=== PATIENT | female | born 1975 | race Caucasian/White ===

== ENCOUNTER 2019-02-23 06:37 | Day surgery (SDC) | payer OTHER, MEDICAID, SELFPAY ==
[2019-02-21 12:32] VITALS: BMI 28.9
[2019-02-23] VITALS (8 sets, daily range): BP systolic 95–109; BP diastolic 37–73; PULSE 52–74; RESP 14–100; TEMP 36.2–36.6; O2SAT 14–100; BMI 27.6
--- NOTE | 2019-02-23 | PATH_ITS ---
[facility] Accession Number: [id number] . 01 Material submitted: . uterus - UTERUS AND BILATERAL FALLOPIAN TUBES . 02 Diagnosis: Uterus and Bilateral Fallopian Tubes, Supracervical Hysterectomy and Bilateral Salpingectomy (Weight 84 grams): Portions of weakly proliferative and disordered proliferative endometrium; negative for glandular hyperplasia, cytologic atypia, and malignancy. Myometrium with multiple intramural leiomyomas (0.1-1.2 cm in greatest dimension). Myometrium with focal involvement by adenomyosis/adenomyoma. Please see comment. Fallopian tubes #1 and #2 with benign paratubal cysts (0.1-0.7 cm in greatest dimension) and no significant histomorphologic abnormality. . MRV 02/27/2019 1401 Local . 02 Comment: Histologic sections of myometrium demonstrate a region of benign glandular elements and associated benign stroma; this is favored to be adenomyosis, although an adenomyoma cannot be completely excluded. . . . . . 02 Electronically signed: . Michelle Myers MD, Pathologist NPI- [id number] . 01 Gross description: . Received in formalin, labeled uterus plus bilateral fallopian tubes, is a morcellated uterus (84 grams, 11.5 x 9.3 x 4.8 cm in aggregate) and two detached fimbriated fallopian tubes (tube #1: length-5.5 cm, diameter-0.5 cm; tube #2: length-5.1 cm, diameter-0.6 cm). The ovaries and cervix are absent. The specimen cannot be oriented and the endometrium and myometrium cannot be grossly measured. The parenchyma is best-white and contains multiple solid firm white whorled, well-circumscribed homogeneous nodules (0.1 x 0.1 by less than 0.1 cm-1.2 x 0.6 x 0.5 cm). The serosa is best smooth and shiny. The fallopian tubes have clark-pink smooth shiny serosa with multiple paratubal cysts (0.1 cm-0.7 cm) containing clear colorless fluid. The lumens are best and focally dilated and otherwise unremarkable. 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 ([id number]) /MRV 02/24/2019 [facility] Local . 02 Pathologist provided ICD-10: N92.0, N94.6 . 02 CPT . [id number] Performed at: 01 [facility] [address] [id number] MD Rommel Ackerman MD Phone: [phone] Performed at: 02 [facility] [place] [address] [place], [place] [id number] MD Kellie Carreon MD Phone: [phone]
--- NOTE | 2019-02-23 07:26 | PM.PREOP ---
Pre-operative Note Interval Note History & Physical reviewed/Exam performed by Physician: Yes Changes to H&P: No
[2019-02-23] MEDS: LACTATED RINGERS 1,000 ML 100 ML IV ×2 (07:32→08:58)
[2019-02-23] MEDS: CEFAZOLIN 2 GM/100 ML FROZ.PIGGY IV (07:55)
--- NOTE | 2019-02-23 08:39 | SUR.OPER ---
Lithotomy on padded OR bed. [place] Pad Positioner under torso. Head on pillow, arms padded and tucked at sides. Legs secured in padded yellow fins stirrups.
[2019-02-23] MEDS: BUPIVACAINE 0.5% W/ EPI (PF) VIAL 30 ML INJ (08:46)
[2019-02-23] MEDS: ROPIVACAINE 0.2% PF 2 MG/ML 10ML AMP 20 ML INJ (08:46)
[2019-02-23] MEDS: OXYCODONE/ACETAMINOPHEN 5/325 TABLET 1 TAB PO (10:04)
--- NOTE | 2019-02-23 11:06 | SUR.PHASEII ---
Assumed care from Janes, assisted pt to BR, steady when up. Voided in BR 30 mls, 42 PVR, thses results left with Dr. Gibson's nurse pema. Pema reported to Dr. Gibson and Yuly called back and stated pt was indeed allowed to go home. [facility] d/c instructions discussed, all voiced an understanding.
--- NOTE | 2019-02-23 12:54 | SUR.PHASEII ---
Late entry: Pt dressed when ready and left when ready and in stable condition.
--- NOTE | 2019-02-24 09:39 | PM.GYNOP.1 ---
Operative Date/Time/Diagnoses Date of procedure: 02/23/19 Time of procedure: 09:45 Pre-op diagnosis: menorrrhagia dysmenorrhea pelvic pain Post-op diagnosis: same Procedure & Clinicians Procedure: Procedures Operation Date: 02/23/19 07:45 Actual Procedures Side Surgeon p Laparoscopic Supracervical Hysterectomy w/ bilateral salpingectomy Not Applicable Hortencia Gibson MD Indications: Menorrhagia Dysmenorrhea Surgeon: Hortencia Gibson Directory Operator: Ramon Alarcon Anesthesia Type: General Operative Notes Findings: 10 week size anteverted uterus Adhesions between the bowel and left adnexa Normal liver, and ovaries Appendix not visualized Gallbladder not visualized Tubes status post ligation bilaterally Closure Type: primary Specimen(s): left tube, right tube and uterus Applied: catheter (Removed at the end of the case) Estimated blood loss (mL): 75 Blood products transfused: none Procedure in detail: The patient was taken to the operating room where she was placed in the dorsal supine position. After adequate general endotracheal anesthesia was achieved, she was placed in the dorsal lithotomy position, and prepped and draped in the usual sterile fashion. A timeout was performed. A bivalve speculum was placed into the vagina and the anterior lip of the cervix grasped with a single-tooth tenaculum. The cervical os was sequentially dilated until the ZUMI uterine manipulator could pass easily into the endometrial cavity. The single-tooth tenaculum was removed from the anterior lip of the cervix, and the bivalve speculum was removed from the vagina. Attention was then turned to the abdomen where 6 mL of half percent Marcaine with epinephrine were injected in the umbilical fold. A 5 mm incision was made. The Verhees needle was placed into the peritoneal cavity, and its placement confirmed by aspiration and drop test. The Verhees needle was removed. A 5 mm trocar was placed without difficulty. 2 other incisions were made midway between the pubic symphysis and umbilicus after 5 mL of half percent Marcaine with epinephrine were injected. These were 5 mm incisions. Two 5 mm trochars were placed under direct visualization. The right tube was grasped with an atraumatic grasper. Using the plasma kinetic with settings of 40 W the mesosalpinx was cauterized and cut all the way down to the cornua of the uterus. The cornua of the uterus was then grasped with an atraumatic grasper. The utero-ovarian ligaments were cauterized and cut. The round ligament and broad ligament was cauterized and cut with plasma kinetic. Hemostasis was achieved. The bladder flap was created using the plasma kinetic with cautery and cut skilled nursing across. The uterine arteries on the right side were extensively cauterized with plasma kinetic. All of this was repeated on the left side and well and thinking and the lesion between the bowel in the left adnexa using the PlasmaKinetic. The remainder of the bladder flap was created using the plasma kinetic, and the bladder taken down off the lower uterine segment and cervix. Using the Endoloop, the cervix was amputated from the uterus 2 cm above the uterosacral ligaments, after the ZUMI uterine manipulator was removed from the uterus. There was a small amount of bleeding noted from the posterior and left edge of the cervix, and this was cauterized for hemostasis. A sponge stick was placed into the vagina. 6 mL of half percent Marcaine with epinephrine were injected above the pubic symphysis. A 12 mm trocar was placed and removed. An Endobag was placed through the suprapubic uterus and the uterus and tubes were placed into the Endobag. The trocar was removed. The Peter placed into the endobag. The uterus was hand morcellated in approximately 6 pieces. The Endobag was removed from the peritoneal cavity. The pelvis was copiously irrigated with warm normal saline. No bleeding was noted. 20 cc of 0.2% ropivacaine were placed over the pedicles. The instruments were a the removed from the abdomen. The CO2 was allowed to escape. The suprapubic incision was closed on the fascia with 0 Vicryl. All of the incisions were closed with 4-0 Biosyn in a subcuticular fashion. The moistened sponge stick was removed from the vagina. Sponge, lap, and instrument counts were correct x-2. The patient tolerated the procedure well, was taken to PACU in stable condition. Complications: none Post-operative Condition: stable Disposition: PACU Plan for aftercare: Home after recovery the AP
== END 2019-02-23 11:00 | disposition home or self-care (01) ==
LOC: OR 06:39 → AC 09:50
PROVIDERS: Family Provider Physician Assistant; Visit Provider Obstetrics & Gynecology
PROC: 0UT94ZL Resection of Uterus, Supracervical, Percutaneous Endoscopic Approach (ICD-10-PCS; CPT 58542; principal; 2019-02-23 07:45)
DX: K66.0 Peritoneal adhesions (postprocedural) (postinfection) (principal); N83.8 Other noninflammatory disorders of ovary, fallopian tube and broad ligament; D21.9 Benign neoplasm of connective and other soft tissue, unspecified
CPT/HCPCS: 58542; J0690; J1100; J1170; J1885; J2250; J2405; J2704; J2795; J3010

== ENCOUNTER 2019-04-06 08:18 | Outpatient (RCR) | payer OTHER, MEDICAID, SELFPAY ==
--- NOTE | 2019-04-06 09:27 | OT.OP.EVAL ---
Visit Care Team Role Provider Type Kelli Marquez PA-C Family Provider Advanced Clinical Documentation Developer Primary Care Provider Specialty: Medical Address: [address] [place] [address], [address], [place], [address] Email: [email or web address] Glen Avilez MD Attending Provider Physician Specialty: Physical Medicine and Rehab Address: [address] [place] [address], [place], [address] Email: [email or web address] Occupational Therapy Initial Evaluation OT Outpatient Adult Evaluation Start: 04/06/19 09:13 Freq: Status: Active Protocol: Document 04/06/19 09:13 AMS (Rec: 04/06/19 09:27 AMS [email or web address]) General Information Visit Start Time 08:30 Visit Stop Time 09:05 Total Visit Minutes 35 Plan of Care Dates 04/06/19-04/08/19 Insurance Information [facility] Treatment Setting Outpatient Care Note Type Initial Evaluation Referring Physician Glen Avilez MD Reason for Referral Bilateral wrist strain Identification Confirmed Yes: Photo ID Therapy Pain Assessment Pain Present Pain Reported Assessment/Plan Treatment Assessment Patient is a 43 year-old right hand dominant female referred to outpatient OT by Glen Avilez MD, secondary to bilateral wrist strain. PMH: significant for arthritis; back pain; jaw pain; memory loss; varicose veins; receiving outpatient PT at [facility]; corticosteriod injection to L wrist secondary to hyperextension of thumb while at work. 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 Instructed in basic joint protection principles, work/ activity modification, use of heat/ice and contrast baths for inflammation and passive stretches out of static positions, as well as passive stretch for thumb. Discussed splints/kinesiotape and limitations. Patient verbalized understanding and denied questions. Recommend d/ c to HEP at this time; therapist to follow-up as deemed appropriate. Patient Recommendations Discharge to Home Exercise Program,Discharge from Occupational Therapy
== END 2019-04-06 16:00 ==
LOC: OT 08:18
PROVIDERS: Family Provider Physician Assistant; PCP Physician Assistant; Visit Provider Physical Medicine & Rehabilitation Pain Medicine
DX: S66.912A Strain of unspecified muscle, fascia and tendon at wrist and hand level, left hand, initial encounter (principal); S66.911A Strain of unspecified muscle, fascia and tendon at wrist and hand level, right hand, initial encounter
CPT/HCPCS: 97165

== ENCOUNTER → 2019-04-19 15:24 | Outpatient (CLI) | payer OTHER, MEDICAID, SELFPAY ==
[2019-04-19 15:37] LABS: Bacteria Urine None Seen; RBC Urine None Seen (0-5/HPF)
[2019-04-19 15:50] LABS: Appearance Urine UA CLEAR; Bilirubin Urine UA NEGATIVE (NEGATIVE); Color Urine UA YELLOW; Glucose Urine UA NEGATIVE (Negative); Ketones Urine UA TRACE (NEGATIVE); Leukocyte Esterase Urine UA NEGATIVE (NEGATIVE); Nitrite Urine UA NEGATIVE (Negative); Occult Blood Urine UA NEGATIVE (Negative); Protein Urine UA NEGATIVE (Negative); Specific Gravity Urine UA 1.025 (1.000-1.035); Urobilinogen Urine UA 0.2 E.U./dL (0.2)
[2019-04-19 15:59] LABS: pH Urine UA 5.5 (4.5-8.0)
[2019-04-19 16:05] LABS: Culture Indicated Urine Cult Not Indicated; Squamous Epithelial Cell Urine 0-1 /HPF (0-5/HPF); WBC Urine 0-1/HPF (0-5/HPF)
== END ==
PROVIDERS: PCP Physician Assistant; Visit Provider Obstetrics & Gynecology
DX: R30.0 Dysuria (principal); R35.0 Frequency of micturition
CPT/HCPCS: 81001

== ENCOUNTER 2019-05-04 08:15 | Outpatient (RCR) | payer OTHER, MEDICAID, SELFPAY ==
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
--- NOTE | 2019-04-17 09:05 | PT-OP ANOTE ---
Pt called last fri to cancel today's appt, work scheduled changed and unable to attend. PATTERNMAKER HELPER reminded of next appt 04/19/19 with verbal confirmation.
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
== END 2019-06-27 08:46 ==
LOC: PHYS 08:15
PROVIDERS: Family Provider Physician Assistant; PCP Physician Assistant; Visit Provider Physical Medicine & Rehabilitation Pain Medicine
DX: M53.3 Sacrococcygeal disorders, not elsewhere classified (principal); M22.2X1 Patellofemoral disorders, right knee; M47.816 Spondylosis without myelopathy or radiculopathy, lumbar region; R29.3 Abnormal posture
CPT/HCPCS: 97010; 97110; 97140; 97161; 97530

== ENCOUNTER → 2019-05-25 11:48 | Outpatient (CLI) | payer OTHER, MEDICAID, SELFPAY ==
[2019-05-25 12:40] LABS: Hemoglobin A1C% w Est Avg Glu 5.4 % (4.0-6.0)
[2019-05-25 12:49] LABS: Alanine Aminotransferase 15 IU/L (<35); Albumin 4.1 g/dL (3.5-5.0); Albumin Globulin Ratio 1.4 (1.0-2.8); Alkaline Phosphatase 34 U/L (38-126); Aspartate Aminotransferase 20 IU/L (14-36); BUN Creatinine Ratio 34.3 (6-22); Bilirubin Total 0.4 mg/dL (0.2-1.3); Blood Urea Nitrogen 24 mg/dL (7-17); Calcium 8.9 mg/dL (8.4-10.2); Carbon Dioxide 26 mmol/L (22-32); Chloride 105 mmol/L (98-107); Cholesterol 185 mg/dL (140-199); Estimated Glomerular Filt Rate > 60.0 mL/min (>60); Globulin 2.9 g/dL (1.7-4.1); Glucose 88 mg/dL (70-100); HDL Cholesterol 51 mg/dL (40-60); HEMOLYSIS < 15 (0-50); LDL Cholesterol Calculated 111 mg/dL (<100); Potassium 4.2 mmol/L (3.4-5.1); Sodium 138 mmol/L (137-145); Triglycerides 113 mg/dL (35-150)
[2019-05-25 13:17] LABS: Thyroid Stimulating Hormone 1.57 uIU/mL (0.47-4.68)
== END ==
PROVIDERS: PCP Physician Assistant; Visit Provider Physician Assistant
DX: L65.9 Nonscarring hair loss, unspecified (principal); Z13.1 Encounter for screening for diabetes mellitus; Z13.220 Encounter for screening for lipoid disorders; Z13.6 Encounter for screening for cardiovascular disorders; Z83.3 Family history of diabetes mellitus
CPT/HCPCS: 36415; 80053; 80061; 83036; 84443

== ENCOUNTER → 2019-06-14 09:40 | Outpatient (CLI) | payer OTHER, MEDICAID, SELFPAY ==
--- NOTE | 2019-06-14 09:41 | DI.RAD.S_ITS ---
PROCEDURE: XR ANKLE LT MIN 3V INDICATIONS: LEFT ANKLE PAIN, ROLLED ANKLE 1 MONTH AGO, SWELLING, LATERAL SIDE TECHNIQUE: 3 views of the ankle were acquired. COMPARISON: None. FINDINGS: Bones: No fractures or dislocations. Ankle mortise is normally aligned. No suspicious bony lesions. Tiny faint ossicle projects to the lateral talus however this appears chronic. Soft tissues: No tibiotalar joint effusion. Achilles tendon appears normal. IMPRESSION: Tiny ossicle projects at the tip of the lateral malleolus however appears chronic. If the patient's symptoms do not improve recommend followup radiographs in 10 days to assess for healing sclerosis/occult injury. Dictated by: Leonel Meeks M.D. on 06/14/2019 at 12:33 Approved by: Leonel Meeks M.D. on 06/14/2019 at 12:35
== END ==
PROVIDERS: PCP Physician Assistant; Referring Provider Family Medicine; Visit Provider Family Medicine
DX: M25.572 Pain in left ankle and joints of left foot (principal)
CPT/HCPCS: 73610

== ENCOUNTER → 2019-06-26 08:13 | Outpatient (CLI) | payer OTHER, MEDICAID, SELFPAY ==
--- NOTE | 2019-06-26 08:16 | DI.US.S_ITS ---
PROCEDURE: US PELVIC COMPLETE INDICATIONS: VAGINAL BLEEDING 4 MONTHS POST HYSTERECTOMY TECHNIQUE: Real-time scanning was performed of the pelvic organs, with image documentation. Additional endovaginal scanning was necessary due to incomplete visualization of the adnexal and endometrial structures by transabdominal scanning. COMPARISON: [facility], US, US PELVIC COMPLETE, 12/13/2018, 12:33. FINDINGS: Transabdominal scanning: Limited scanning through the kidneys shows no hydronephrosis. No pathologic free abdominal or pelvic fluid. Endovaginal scanning: Uterus: Uterus has been removed. Ovaries: Right ovary measures 28 x 27 x 20 mm. A focus of heteroechogenicity is present measuring 26 x 17 x 16 mm. Left ovary is nonvisualized. Left adnexa is unremarkable. IMPRESSION: Simple right ovarian cyst as above. Dictated by: Katie Garcia M.D. on 06/26/2019 at 11:15 Approved by: Katie Garcia M.D. on 06/26/2019 at 11:16
== END ==
PROVIDERS: PCP Family Medicine; Referring Provider Obstetrics & Gynecology; Visit Provider Obstetrics & Gynecology
DX: N93.0 Postcoital and contact bleeding (principal); N83.291 Other ovarian cyst, right side; Z90.710 Acquired absence of both cervix and uterus
CPT/HCPCS: 76830; 76856

== ENCOUNTER → 2020-03-19 17:04 | Outpatient (CLI) | payer OTHER, MEDICAID, SELFPAY ==
--- NOTE | 2020-03-19 17:05 | DI.RAD.S_ITS ---
PROCEDURE: XR LUMBAR SPINE MIN 4V INDICATIONS: chronic LBP TECHNIQUE: 5 total views of the lumbar spine were acquired, including bilateral oblique views. COMPARISON: [facility], [place], XR LUMBAR SPINE WITH OBLIQUES, 12/12/2018, 11:59. [facility], [place], L-SPINE 2-3 VIEWS, 03/23/2007, 12:22. FINDINGS: Bones: This patient has transitional lumbar anatomy. For the purposes of this examination, the level with the last well-developed disc space is considered to be L5-S1. This numbering scheme is chosen to remain consistent with the prior 2007 report. By this numbering scheme, there are tiny vestigial ribs seen at the L1 level. The L5 level is transitional and partially sacralized. No acute fractures are seen. No suspicious lytic or blastic lesions are seen. There is moderate to severe disc space narrowing at L3-L4, with moderate disc space narrowing at L4-L5 and L5-S1. Lower lumbar spine facet arthropathy is seen. Soft tissues: Overlying bowel gas pattern is normal. No suspicious soft tissue calcifications. Pelvic phleboliths are incidentally noted. Oblique images: No pars defects. IMPRESSION: Lower lumbar spine degenerative changes are seen, which have progressed compared to 2006. Transitional lumbar anatomy. Dictated by: Yamil Rodriguez M.D. on 03/19/2020 at 16:44 Approved by: Yamil Rodriguez M.D. on 03/19/2020 at 16:47
== END ==
PROVIDERS: PCP Family Medicine; Referring Provider Physical Medicine & Rehabilitation; Visit Provider Physical Medicine & Rehabilitation
DX: M47.816 Spondylosis without myelopathy or radiculopathy, lumbar region (principal)
CPT/HCPCS: 72110

== ENCOUNTER → 2020-05-06 07:45 | Outpatient (CLI) | payer OTHER, MEDICAID, SELFPAY ==
[2020-05-06 12:08] LABS: COVID19 -Nasal RAPID Negative (Negative)
== END ==
PROVIDERS: PCP Family Medicine; Visit Provider Physical Medicine & Rehabilitation
DX: Z01.812 Encounter for preprocedural laboratory examination (principal); Z20.822 Contact with and (suspected) exposure to COVID-19
CPT/HCPCS: 87635; C9803

== ENCOUNTER 2020-05-07 14:52 | Outpatient (CLI) | payer OTHER, MEDICAID, SELFPAY ==
[2020-05-07] VITALS (10 sets, daily range): BP systolic 106–123; BP diastolic 71–85; PULSE 63–83; RESP 14–22; TEMP 36; O2SAT 95–100
--- NOTE | 2020-05-07 14:53 | DI.RAD.S_ITS ---
PROCEDURE: PAIN L/S FACET INJ/BLK 1ST BUDDY COMPARISON: None. INDICATIONS: SPONDYLOSIS FINDINGS: 6 intraoperative fluoroscopy images demonstrate injection of the L3-L4, L4-L5 and L5-S1 facet joints. IMPRESSION: Fluoroscopy for pain management. Dictated by: Kasi Ambrose M.D. on 05/07/2020 at 16:53 Approved by: Kasi Ambrose M.D. on 05/07/2020 at 16:54
[2020-05-07] MEDS: fentaNYL 100 MCG/2 ML INJ 50 MCG IV (15:40)
[2020-05-07] MEDS: MIDAZOLAM 5 MG/5 ML VIAL IV (15:50)
[2020-05-07] MEDS: LIDOCAINE 1% 20 ML 10 ML INJ (15:51)
[2020-05-07] MEDS: IOPAMIDOL 15 ML VIAL 3 ML INJ (15:51)
[2020-05-07] MEDS: BUPIVACAINE 0.5% (PF) VIAL 5 ML INJ (15:52)
[2020-05-07] MEDS: BETAMETHASONE 30 MG/5 ML MDV 12 MG INJ (15:52)
--- NOTE | 2020-05-07 15:58 | P.PCN_ITS ---
Date/Time/Diagnoses Date of procedure: 05/07/20 Time of procedure: 15:58 Pre-procedure diagnosis: 1. FACET ARTHROPATHY 2. AXIAL LBP 3. MULTILEVEL DDD Post-procedure diagnosis: same Procedure Notes Procedure: 1. FLUOROSCOPICALLY GUIDED CONTRAST CONTROLLED FACET JOINT INJECTIONS BILATERAL L3/4, L4/5, L5/S1 Indications: Malissa is referred by Dr. Amaya for treatment of Axial LBP Physician: Franky Grimes Total Fluoroscopy time (seconds): 14 Total sedation minutes: 15 Complications: none Procedure in detail & Post-procedure care: FINDINGS Multilevel Facet Arthropathy with Clinically significant axial LBP DESCRIPTION OF PROCEDURE Fluoroscopically guided, contrast-controlled bilateral L3/4, L4/5, L5/S1 facet joint injections. Following review of allergy and review of potential side effects and complications, including, but not necessarily limited to, infection, allergic reaction, local tissue breakdown, stroke, temporary or permanent nerve injury, paralysis, and possible , the patient indicated that the patient understood and agreed to proceed. An informed consent document was signed by the patient, witnessed by a nurse, and placed in the patient's chart. Additionally, other treatment options including medications, modalities, and physical therapy were reviewed with the patient. After review of previous anaesthesic history and IV conscious sedation the patient was deemed safe to proceed with today?s procedure with IV conscious sedation as ASA class II designation. Safety time-out was performed to confirm patient ID, procedure to be performed and site of procedure. IV sedation was accomplished with a combination of 5mg of Versed and 50mcg of Fentanyl was administered by the RN after DO order, titrated to patient comfort during the course of the procedure while the patient remained responsive to all verbal commands In the prone position, following sterile prep and drape of the lumbar region, the posterior aspect of the L3/4, L4/5, L5/S1 facet joints were identified fluoroscopically. The skin was anesthetized via a 25-gauge 1.5inch needle with 1% lidocaine solution into the corresponding facet joints. At this point, a 22- gauge 3.5-inch spinal needle was atraumatically introduced and advanced under fluoroscopic guidance into the corresponding facet joints. Following negative aspiration, injections of approximately 0.2cc of Isovue 200 confirmed interarticular placement without vascular uptake. The identical procedure was then performed at the L3/4, L4/5, L5/S1 facet joints on the left. Radiological data, including multiple fluoroscopic views of the lumbosacral spine, reveal a spinal needle at the L3/4, L4/5, L5/S1 facet joints bilaterally. Subsequent views show flow of contrast material both superiorly and inferiorly within the joint space without vascular or intrathecal uptake. At this point, a total of 0.5cc including a mixture of 0.25cc Marcaine and 0.25cc betamethasone was injected without complication into each of the corresponding facet joints. The patient tolerated the procedure well without signs or symptoms of complications prior to transfer to the recovery area continued monitoring without incident. The patient was then transferred to the recovery area where they were observed for an appropriate period of time after the injection. The patient reported a VAS score of 8 prior to the procedure and a post- procedure VAS of 2. POST OP INSTRUCTIONS The patient was provided a Pain Log to continue to record their response to the target-specific procedure prior to follow-up visit with their referring physician. Additionally, specific post-injection care instructions and a contact number to our office were provided if concerns arise regarding possible complications associated with the procedure are suspected.
== END 2020-05-07 16:22 | disposition home or self-care (01) ==
PROVIDERS: PCP Family Medicine; Referring Provider Physical Medicine & Rehabilitation; Visit Provider Physical Medicine & Rehabilitation
DX: M47.816 Spondylosis without myelopathy or radiculopathy, lumbar region (principal); M47.817 Spondylosis without myelopathy or radiculopathy, lumbosacral region; M51.36 Other intervertebral disc degeneration, lumbar region; M51.37 Other intervertebral disc degeneration, lumbosacral region
CPT/HCPCS: 64493; 64494; 64495; 99152; J0702; J2250; J3010

== ENCOUNTER → 2020-06-24 08:47 | Outpatient (CLI) | payer OTHER, MEDICAID, SELFPAY ==
[2020-06-24 10:13] LABS: Alanine Aminotransferase 14 IU/L (<35); Albumin Globulin Ratio 1.5 (1.0-2.8); Alkaline Phosphatase 32 U/L (38-126); Aspartate Aminotransferase 19 IU/L (14-36); BUN Creatinine Ratio 16.4 (6-22); Bilirubin Total 0.3 mg/dL (0.2-1.3); Blood Urea Nitrogen 12 mg/dL (7-17); Carbon Dioxide 30 mmol/L (22-32); Chloride 102 mmol/L (98-107); Estimated Glomerular Filt Rate > 60.0 mL/min (>60); Globulin 2.6 g/dL (1.7-4.1); Glucose 92 mg/dL (70-100); HEMOLYSIS < 15 (0-50); Potassium 3.9 mmol/L (3.4-5.1); Sodium 135 mmol/L (137-145); Total Protein 6.6 g/dL (6.3-8.2)
== END ==
PROVIDERS: PCP Family Medicine; Referring Provider Family Medicine; Visit Provider Family Medicine
DX: E78.5 Hyperlipidemia, unspecified (principal)
CPT/HCPCS: 36415; 80053

== ENCOUNTER → 2020-11-22 11:49 | Outpatient (CLI) | payer OTHER, MEDICAID, SELFPAY ==
[2020-11-22 12:54] LABS: COVID19 -Nasal RAPID POSITIVE (Negative)
== END ==
PROVIDERS: PCP Family Medicine; Visit Provider Registered Nurse
DX: U07.1 COVID-19 (principal)
CPT/HCPCS: 87635

== ENCOUNTER → 2022-02-26 10:11 | Outpatient (CLI) | payer OTHER, MEDICAID, SELFPAY ==
[2022-02-26 12:47] LABS: Add Manual Diff / Slide Review NO; Basophils Absolute Auto 0 /uL (0-100); Basophils Percent Auto 0.3 % (0-2); Eosinophils Absolute Auto 200 /uL (0-450); Eosinophils Percent Auto 2.7 % (2-4); Hematocrit 38.3 % (36-46); Lymphocytes Absolute Auto 1900 /uL (1100-4500); Lymphocytes Percent Auto 24.9 % (25-40); Mean Corpuscular HGB Conc 33.9 % (30-36); Mean Corpuscular Hemoglobin 29.2 PG (26-34); Monocytes Absolute Auto 600 /uL (0-900); Monocytes Percent Auto 8.1 % (3-14); Neutrophils Absolute Auto 4900 /uL (1500-7000); Platelet Count 276 X10^3/uL (150-400); Red Blood Cell Count 4.46 X10^6/uL (4.0-5.2); Red Cell Distribution Width 12.8 % (11.6-14.8); White Blood Cell Count 7.6 X10^3/uL (4.5-11.0)
[2022-02-26 13:06] LABS: Alanine Aminotransferase 18 IU/L (<35); Albumin 4.1 g/dL (3.5-5.0); Albumin Globulin Ratio 1.6 (1.0-2.8); Alkaline Phosphatase 35 U/L (38-126); Aspartate Aminotransferase 19 IU/L (14-36); BUN Creatinine Ratio 17.1 (6-22); Bilirubin Total 0.4 mg/dL (0.2-1.3); Blood Urea Nitrogen 12 mg/dL (7-17); Calcium 8.9 mg/dL (8.4-10.2); Carbon Dioxide 27 mmol/L (22-32); Chloride 102 mmol/L (98-107); Cholesterol 190 mg/dL (140-199); Estimated Glomerular Filt Rate > 60 mL/min (>60); Globulin 2.6 g/dL (1.7-4.1); Glucose 91 mg/dL (70-100); HDL Cholesterol 48 mg/dL (40-60); HEMOLYSIS < 15 (0-50); LDL Cholesterol Calculated 111 mg/dL (<100); Sodium 138 mmol/L (137-145); Total Protein 6.7 g/dL (6.3-8.2); Triglycerides 156 mg/dL (35-150)
[2022-02-26 13:36] LABS: TSH w/ Reflex to FT4 3.63 uIU/mL (0.47-4.68)
== END ==
PROVIDERS: PCP Family Medicine; Referring Provider Family Medicine; Visit Provider Family Medicine
DX: E78.5 Hyperlipidemia, unspecified (principal); F98.8 Other specified behavioral and emotional disorders with onset usually occurring in childhood and adolescence; L68.0 Hirsutism
CPT/HCPCS: 36415; 80053; 80061; 84443; 85025

== ENCOUNTER → 2022-11-09 11:11 | Outpatient (CLI) | payer OTHER, SELFPAY ==
[2022-11-09 12:33] LABS: Appearance Urine UA CLEAR; Bilirubin Urine UA NEGATIVE (NEGATIVE); Color Urine UA YELLOW; Glucose Urine UA NEGATIVE (Negative); Ketones Urine UA NEGATIVE (NEGATIVE); Leukocyte Esterase Urine UA NEGATIVE (NEGATIVE); Nitrite Urine UA NEGATIVE (Negative); Occult Blood Urine UA 1+ (Negative); Protein Urine UA NEGATIVE (Negative); Specific Gravity Urine UA <=1.005 (1.000-1.035); Urobilinogen Urine UA 0.2 E.U./dL (0.2)
[2022-11-09 12:50] LABS: Bacteria Urine Occasional (0-1); Culture Indicated Urine Cult Not Indicated; RBC Urine 1-5/HPF (0-5/HPF); Squamous Epithelial Cell Urine 0-1 /HPF (0-5/HPF); WBC Urine 0-1/HPF (0-5/HPF)
[2022-11-09 15:32] LABS: Pregnancy Test Urine Negative (Negative)
[2022-11-09 16:49] LABS: Urine N gonorrhoeae NOT DETECTED
[2022-11-09 16:54] LABS: Urine Chlamydia NOT DETECTED
== END ==
PROVIDERS: PCP Family Medicine; Referring Provider Family Medicine; Visit Provider Family Medicine
DX: R31.9 Hematuria, unspecified (principal); R30.0 Dysuria
CPT/HCPCS: 81001; 81025; 87491; 87591

== ENCOUNTER → 2022-11-21 13:38 | Outpatient (CLI) | payer OTHER, SELFPAY ==
--- NOTE | 2022-11-21 13:39 | DI.CT.S_ITS ---
PROCEDURE: CT IVP A/P W/WO INDICATIONS: Recurrent UTI, hematuria TECHNIQUE: Optional 5 mm thick noncontrast images acquired from the diaphragm to the symphysis pubis. After the administration of intravenous contrast, 5 mm thick images acquired from the diaphragm to the symphysis pubis after a 10-minute delay. 2 mm thick coronal and sagittal reformats were then performed of the kidneys and ureters. For radiation dose reduction, the following was used: automated exposure control, adjustment of mA and/or kV according to patient size. COMPARISON: None. FINDINGS: Image quality: Excellent. Lung bases: Lung bases are clear. Heart size is normal. Urinary system: Both kidneys are normal in size, without hydronephrosis or nephrolithiasis on pre-contrast images. No perinephric fat stranding. There is normal bilateral renal enhancement. Renal calyces appear normal in morphology when filled with contrast. Opacified portions of both ureters demonstrate normal caliber. Of note, the mid and distal segments of the right ureter are not opacified but there are no secondary findings to suggest extra luminal mass lesions or periureteral soft tissue abnormalities. Bladder wall thickness is normal. No calcified bladder stones. Other solid organs: Liver is normal in size and enhancement. Scattered hepatic hypodensities are too small to accurately characterize but likely represent cysts or hemangiomas. Gallbladder is decompressed but otherwise unremarkable in appearance. Biliary system is non dilated. Pancreas enhances normally. Spleen is normal in size and enhancement. No adrenal nodules. Peritoneum and bowel: Bowel loops demonstrate normal wall thickness and caliber. No free fluid or air. Normal appendix. Nodes and vessels: No retroperitoneal or mesenteric adenopathy by size criteria. Aorta and inferior vena cava are normal in size. Abdominal wall: There is a fat-containing umbilical hernia without acute inflammation. Pelvis: No pathologic free pelvic fluid. No inguinal hernias. No pelvic adenopathy. Bones: No suspicious bony lesions. No acute vertebral body compression fractures. Multilevel lumbar spondylosis. IMPRESSION: CT IVP without abnormalities to explain patient's hematuria. No evidence for urolithiasis or obstructive uropathy. No findings to suggest suspicious urothelial abnormalities. Dictated by: Jimy oRse M.D. on 11/21/2022 at 13:35 Approved by: Jimy Rose M.D. on 11/21/2022 at 13:41
== END ==
PROVIDERS: PCP Family Medicine; Referring Provider Family Medicine; Visit Provider Family Medicine
DX: N39.0 Urinary tract infection, site not specified (principal); R31.9 Hematuria, unspecified
CPT/HCPCS: 74178; Q9967

== ENCOUNTER → 2022-12-21 08:56 | Outpatient (CLI) | payer OTHER, SELFPAY ==
--- NOTE | 2022-12-21 08:59 | DI.RAD.S_ITS ---
PROCEDURE: XR HAND RT MIN 3V INDICATIONS: Right hand pain TECHNIQUE: 3 views of the hand(s) acquired. COMPARISON: None. FINDINGS: Bones: No fractures or dislocations. Carpal bones are normally aligned. No suspicious bony lesions. First CMC joint space narrowing with osteophytic lipping. Soft tissues: No suspicious soft tissue calcifications. IMPRESSION: No acute bony abnormality. 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 Dictated by: Micha Harvey M.D. on 12/21/2022 at 11:23 Approved by: Micha Harvey M.D. on 12/21/2022 at 11:24
--- NOTE | 2022-12-21 08:59 | DI.RAD.S_ITS ---
PROCEDURE: XR LUMBAR SPINE 2-3V INDICATIONS: LOW BACK PAIN TECHNIQUE: 3 views of the lumbar spine were acquired. COMPARISON: [facility], [place], XR LUMBAR SPINE MIN 4V, 03/19/2020, 17:29. [facility], [place], L-SPINE 2-3 VIEWS, 03/23/2007, 12:22. FINDINGS: Bones: Redemonstration of transitional lumbar anatomy. For the purpose of this examination, the level with the last well-developed disc space is considered to be L5-S1. This numbering scheme is toe than to remain consistent with prior reports. Minimal retrolisthesis of L4 on L5. Multilevel disc height loss, most severe at L3-L4, moderate L4-5 and L5-S1. Facet arthropathy, most pronounced at the lower lumbar spine. Mild marginal spurring. No vertebral body compression fractures. No suspicious bony lesions. Soft tissues: Overlying bowel gas pattern is normal. No suspicious soft tissue calcifications. IMPRESSION: Similar appearance of lower lumbar spine degenerative changes. Redemonstration of transitional lumbar anatomy. Dictated by: Noel Castro M.D. on 12/21/2022 at 10:33 Approved by: Noel Castro M.D. on 12/21/2022 at 10:37
== END ==
PROVIDERS: Family Provider Family Medicine; PCP Family Medicine; Referring Provider Physical Medicine & Rehabilitation; Visit Provider Family Medicine
DX: M18.11 Unilateral primary osteoarthritis of first carpometacarpal joint, right hand (principal); M47.816 Spondylosis without myelopathy or radiculopathy, lumbar region; M79.641 Pain in right hand; M54.50 Low back pain, unspecified; G89.29 Other chronic pain
CPT/HCPCS: 72100; 73130

== ENCOUNTER 2023-02-24 10:00 | Outpatient (RCR) | payer OTHER, SELFPAY ==
--- NOTE | 2022-12-23 11:38 | PT.OIE ---
Current Diagnoses Low back pain, unspecified (12/23/22) Past Medical History (Last Reviewed 12/21/22 @ 18:35 by Rolly Amaya DO) Acne ADD (attention deficit disorder) Dysmenorrhea Facet arthropathy, lumbar Former smoker Hirsutism HNP (herniated nucleus pulposus) HNP (herniated nucleus pulposus), lumbar Hyperlipidemia Muscle spasm Painless hematuria Perimenopausal Preventative health care Preventative health care Respiratory infection Right hand pain Weight gain Past Surgical History (Last Reviewed 12/21/22 @ 18:35 by Rolly Amaya DO) Status post delivery Status post tubal ligation Visit Care Team Role Provider Type Rolly Amaya DO Attending Provider Physician Family Provider Primary Care Provider Referring Provider Specialty: [facility] Address: [address] [place] [address], [facility] Email: [email or web address] Initial Evaluation PT-OP-A Visit Information Start: 12/23/22 11:25 Freq: Status: Active Protocol: Document 12/23/22 11:26 ED (Rec: 12/23/22 11:38 ED [id number]) Out-Patient Physical Therapy Visit Information Visit Information Visit Type Initial Evaluation Visit Note 0/6 Visit Start Time 10:00 Visit Stop Time 10:45 Total Visit Minutes 45 PT-OP-B Current Condition Start: 12/23/22 11:25 Freq: Status: Active Protocol: Document 12/23/22 11:26 ED (Rec: 12/23/22 11:38 ED [id number]) Current Condition History of Current Condition Onset Date chronic low back pain Current Complaints low back pain History of Current Condition Pt states that she has chronic low back pain. She had corticosteroid injections a few years ago and states those seem to be wearing off now and wants to get another set of injections but she needs to have 6 or so physical therapy visits first. Pt states that she is physically active with her various jobs but does not do any formal, scheduled exercise routines; she used to do yoga regularly. Pt notes that prolonged sitting and bending forward are activities that aggravate her low back. PT-OP-C Subjective Start: 12/23/22 11:25 Freq: Status: Active Protocol: Document 12/23/22 11:26 ED (Rec: 12/23/22 11:38 ED [id number]) Patient Questionnaires Oswestry Low Back Index Oswestry Score 19 / 50 = 38.0 % Oswestry Impairment 20 to 39% Impaired (Score 20- 39) PT-OP-K Range of Motion Start: 12/23/22 11:25 Freq: Status: Active Protocol: Document 12/23/22 11:26 ED (Rec: 12/23/22 11:38 ED [id number]) Lumbar Spine Range of Motion Lumbar Spine Active Flexion 100 Extension 100 ROM Limitations Pain Comments patient demonstrates full thoracolumbar ROM. Pain is noted during end range extension. Slight irritation and end range flexion PT-OP-L Special Tests Start: 12/23/22 11:25 Freq: Status: Active Protocol: Document 12/23/22 11:26 ED (Rec: 12/23/22 11:38 ED [id number]) Special Tests Lumbar Spine Special Tests Straight Leg Raise Test Results - Lior Test Results - PT-OP-T Assessment and Plan Start: 12/23/22 11:25 Freq: Status: Active Protocol: Document 12/23/22 11:26 ED (Rec: 12/23/22 11:38 ED [id number]) Physical Therapy Assessment Rehab Potential Rehabilitation Potential Good Evaluation Complexity Number of Personal Factors/Comorbidities 1-2 Number of Body Systems Impaired 1-2 Clinical Presentation at Evaluation Stable Impairments Impairments Activity Tolerance,Functional Activities,Pain,Posture Goals Four Impairment Oswestry Intermediate Goal (LTG) Pt will improve Oswestry Low back pain questionnaire by 10 points to a score <28. LTG Duration 6-8 weeks Three Impairment lifting Short Term Goal (STG) Pt will be able to lift 10# from the ground repeatedly c/o low back pain. STG Duration 3 weeks Intermediate Goal (LTG) Pt will be able to lift, carry , and/or pull 10# repeatedly c /o low back pain. LTG Duration 6-8 weeks Two Impairment pain Short Term Goal (STG) Pt will report 10% improvment in low back pain frequency and /or intensity. STG Duration 3 weeks Application Software Engineer Goal (LTG) Pt will report 10% improvment in low back pain frequency and /or intensity. LTG Duration 4-8 weeks One Impairment HEP Short Term Goal (STG) Pt will report performing HEP > days/week. STG Duration 2 weeks Application Software Engineer Goal (LTG) Pt will report performing HEP > days/week. LTG Duration 6 weeks Assessment Summary Assessment Pt reported to PT c/ complaints of chronic low back pain. Pt currently not exercising regularly but stated that she typically felt better when she was exercising. Pt had directional preference of extension; flexion was reported as a pain agitator. Pt demonstrated full ROM of thoracolumbar spine. Pt provided patient with initial HEP of : modified curl ups, side planks, bird dogs, hip bridges, and the couch stretch. Pt able to do exercises relatively easily and c/o pain so I anticipate progressing exercises at next PT session. Physical Therapy Plan Frequency and Duration Frequency of Treatment 2x/Week Duration of treatment (weeks) 10 Plan of Care Start Date 12/23/22 Plan of Care End Date 03/23/23 Next Visit Focus/Plan Next Note Type Treatment Note Next Visit Plan elliptical/TM, HEP (blanco big 3, bridges, couch stretch), open books, figure 4 LTR, pigeon stretch, deadlift/ single leg RDL
--- NOTE | 2022-12-23 11:38 | PT.OPPOC ---
Physical, Occupational & Speech Therapy At [facility] Current Diagnoses Low back pain, unspecified (12/23/22) Visit Care Team Role Provider Type Rolly Amaya DO Attending Provider Physician Family Provider Primary Care Provider Referring Provider Specialty: Family Practice Address: [address] [place] [address], [id number] Email: [email or web address] Plan Of Care PT-OP-T Assessment and Plan Start: 12/23/22 11:25 Freq: Status: Active Protocol: Document 12/23/22 11:26 ED (Rec: 12/23/22 11:38 ED [id number]) Physical Therapy Assessment Rehab Potential Rehabilitation Potential Good Evaluation Complexity Number of Personal Factors/Comorbidities 1-2 Number of Body Systems Impaired 1-2 Clinical Presentation at Evaluation Stable Impairments Impairments Activity Tolerance,Functional Activities,Pain,Posture Goals Four Impairment Oswestry Coal Deliverer Goal (LTG) Pt will improve Oswestry Low back pain questionnaire by 10 points to a score <28. LTG Duration 6-8 weeks Three Impairment lifting Short Term Goal (STG) Pt will be able to lift 10# from the ground repeatedly c/o low back pain. STG Duration 3 weeks Coal Deliverer Goal (LTG) Pt will be able to lift, carry , and/or pull 10# repeatedly c /o low back pain. LTG Duration 6-8 weeks Two Impairment pain Short Term Goal (STG) Pt will report 10% improvment in low back pain frequency and /or intensity. STG Duration 3 weeks Coal Deliverer Goal (LTG) Pt will report 10% improvment in low back pain frequency and /or intensity. LTG Duration 4-8 weeks One Impairment HEP Short Term Goal (STG) Pt will report performing HEP > days/week. STG Duration 2 weeks Coal Deliverer Goal (LTG) Pt will report performing HEP > days/week. LTG Duration 6 weeks Assessment Summary Assessment Pt reported to PT c/ complaints of chronic low back pain. Pt currently not exercising regularly but stated that she typically felt better when she was exercising. Pt had directional preference of extension; flexion was reported as a pain agitator. Pt demonstrated full ROM of thoracolumbar spine. Pt provided patient with initial HEP of : modified curl ups, side planks, bird dogs, hip bridges, and the couch stretch. Pt able to do exercises relatively easily and c/o pain so I anticipate progressing exercises at next PT session. Physical Therapy Plan Frequency and Duration Frequency of Treatment 2x/Week Duration of treatment (weeks) 10 Plan of Care Start Date 12/23/22 Plan of Care End Date 03/23/23 Next Visit Focus/Plan Next Note Type Treatment Note Next Visit Plan elliptical/TM, HEP (blanco big 3, bridges, couch stretch), open books, figure 4 LTR, pigeon stretch, deadlift/ single leg RDL Plan of Care Dates Plan of Care Start Date 12/23/22 Plan of Care End Date 03/23/23 Electronically Signed by: Dionte Steel, PT 12/23/22 1649 If you are in agreement with this Plan of Care, please return a signed and dated copy. I have reviewed this Plan of Care and certify that the skilled therapy services above are required to meet the patient?s needs. Physician Signature Date Printed Name and Credentials Clinical Instructor Signature Printed Name and Credentials
--- NOTE | 2022-12-24 14:27 | PT.OPPOC ---
Physical, Occupational & Speech Therapy At [facility] Current Diagnoses Low back pain, unspecified (12/23/22) Visit Care Team Role Provider Type Rolly Amaya DO Attending Provider Physician Family Provider Primary Care Provider Referring Provider Specialty: Family Practice Address: [address] [place] [address], [id number] Email: [email or web address] Plan Of Care PT-OP-T Assessment and Plan Start: 12/23/22 11:25 Freq: Status: Active Protocol: Document 12/23/22 11:26 ED (Rec: 12/23/22 11:38 ED [id number]) Physical Therapy Assessment Rehab Potential Rehabilitation Potential Good Evaluation Complexity Number of Personal Factors/Comorbidities 1-2 Number of Body Systems Impaired 1-2 Clinical Presentation at Evaluation Stable Impairments Impairments Activity Tolerance,Functional Activities,Pain,Posture Goals Four Impairment Oswestry Dinkey Driver Goal (LTG) Pt will improve Oswestry Low back pain questionnaire by 10 points to a score <28. LTG Duration 6-8 weeks Three Impairment lifting Short Term Goal (STG) Pt will be able to lift 10# from the ground repeatedly c/o low back pain. STG Duration 3 weeks Dinkey Driver Goal (LTG) Pt will be able to lift, carry , and/or pull 10# repeatedly c /o low back pain. LTG Duration 6-8 weeks Two Impairment pain Short Term Goal (STG) Pt will report 10% improvment in low back pain frequency and /or intensity. STG Duration 3 weeks Dinkey Driver Goal (LTG) Pt will report 10% improvment in low back pain frequency and /or intensity. LTG Duration 4-8 weeks One Impairment HEP Short Term Goal (STG) Pt will report performing HEP > days/week. STG Duration 2 weeks Dinkey Driver Goal (LTG) Pt will report performing HEP > days/week. LTG Duration 6 weeks Assessment Summary Assessment Pt reported to PT c/ complaints of chronic low back pain. Pt currently not exercising regularly but stated that she typically felt better when she was exercising. Pt had directional preference of extension; flexion was reported as a pain agitator. Pt demonstrated full ROM of thoracolumbar spine. Pt provided patient with initial HEP of : modified curl ups, side planks, bird dogs, hip bridges, and the couch stretch. Pt able to do exercises relatively easily and c/o pain so I anticipate progressing exercises at next PT session. Physical Therapy Plan Frequency and Duration Frequency of Treatment 2x/Week Duration of treatment (weeks) 10 Plan of Care Start Date 12/23/22 Plan of Care End Date 03/23/23 Therapeutic Interventions Therapeutic Interventions Gait Training,Home Exercise Program,Joint Mobilizations, Manual Therapy,Neuromuscular Re-education,Patient/Caregiver Education,Self-Care/Home Management,Taping,Therapeutic Activities,Therapeutic Exercises Modalities Biofeedback,Cold Pack/Ice Massage,Electric Stimulation, Hot Packs,Iontophoresis, Ultrasound Next Visit Focus/Plan Next Note Type Treatment Note Next Visit Plan elliptical/TM, HEP (blanco big 3, bridges, couch stretch), open books, figure 4 LTR, pigeon stretch, deadlift/ single leg RDL Plan of Care Dates Plan of Care Start Date 12/23/22 Plan of Care End Date 03/23/23 Electronically Signed by: Dionte Steel, PT 12/24/22 [id number] If you are in agreement with this Plan of Care, please return a signed and dated copy. I have reviewed this Plan of Care and certify that the skilled therapy services above are required to meet the patient?s needs. Physician Signature Date Printed Name and Credentials Clinical Instructor Signature Printed Name and Credentials
--- NOTE | 2022-12-30 10:50 | PT.OTN ---
Current Diagnoses Low back pain, unspecified (12/30/22) Physical Therapy Treatment Note PT-OP-A Visit Information Start: 12/23/22 11:25 Freq: Status: Active Protocol: Document 12/30/22 10:45 ED (Rec: 12/30/22 10:50 ED [id number]) Out-Patient Physical Therapy Visit Information Visit Information Visit Type Treatment Note Visit Note 05/08 Visit Start Time 10:00 Visit Stop Time 10:45 Total Visit Minutes 45 PT-OP-B Current Condition Start: 12/23/22 11:25 Freq: Status: Active Protocol: Document 12/23/22 11:26 ED (Rec: 12/23/22 11:38 ED [id number]) Current Condition History of Current Condition Onset Date chronic low back pain Current Complaints low back pain History of Current Condition Pt states that she has chronic low back pain. She had corticosteroid injections a few years ago and states those seem to be wearing off now and wants to get another set of injections but she needs to have 6 or so physical therapy visits first. Pt states that she is physically active with her various jobs but does not do any formal, scheduled exercise routines; she used to do yoga regularly. Pt notes that prolonged sitting and bending forward are activities that aggravate her low back. PT-OP-C Subjective Start: 12/23/22 11:25 Freq: Status: Active Protocol: Document 12/30/22 10:45 ED (Rec: 12/30/22 10:50 ED [id number]) OP-PT Subjective Patient Comments Patient Comments Pt states that she did not do her HEP since the evaluation. She states that she just isn't great about exercising at home and she typically needs to go to the gym. PT-OP-K Range of Motion Start: 12/23/22 11:25 Freq: Status: Active Protocol: Document 12/23/22 11:26 ED (Rec: 12/23/22 11:38 ED [id number]) Lumbar Spine Range of Motion Lumbar Spine Active Flexion 100 Extension 100 ROM Limitations Pain Comments patient demonstrates full thoracolumbar ROM. Pain is noted during end range extension. Slight irritation and end range flexion PT-OP-L Special Tests Start: 12/23/22 11:25 Freq: Status: Active Protocol: Document 12/23/22 11:26 ED (Rec: 12/23/22 11:38 ED [id number]) Special Tests Lumbar Spine Special Tests Straight Leg Raise Test Results - Lior Test Results - PT-OP-Q Treatments Start: 12/23/22 11:25 Freq: Status: Active Protocol: Document 12/30/22 10:45 ED (Rec: 12/30/22 10:50 ED [id number]) Cardio Equipment Treadmill Duration (Minutes) 8 Speed 2.5 Incline 1 Therapeutic Exercises Supine Exercises modified curl up Reps/Minutes x60'' eritrean plank Reps/Minutes x60'' Sidelying Exercises side plank Side bilateral Reps/Minutes x60'' Sitting Exercises neutral dialysis technician row Resistance L5 Equipment Used machine Reps/Minutes 3x20 Therapeutic Activity Therapeutic Activity RDL Name RDL Reps/Minutes 3x15 Comments 30# in basket 1x8 single leg RDL PT-OP-T Assessment and Plan Start: 12/23/22 11:25 Freq: Status: Active Protocol: Document 12/30/22 10:45 ED (Rec: 12/30/22 10:50 ED [id number]) Physical Therapy Assessment Goals Four Impairment Oswestry University Registrar Goal (LTG) Pt will improve Oswestry Low back pain questionnaire by 10 points to a score <28. LTG Duration 6-8 weeks Three Impairment lifting Short Term Goal (STG) Pt will be able to lift 10# from the ground repeatedly c/o low back pain. STG Duration 3 weeks University Registrar Goal (LTG) Pt will be able to lift, carry , and/or pull 10# repeatedly c /o low back pain. LTG Duration 6-8 weeks Two Impairment pain Short Term Goal (STG) Pt will report 10% improvment in low back pain frequency and /or intensity. STG Duration 3 weeks Chcf Goal (LTG) Pt will report 10% improvment in low back pain frequency and /or intensity. LTG Duration 4-8 weeks One Impairment HEP Short Term Goal (STG) Pt will report performing HEP > days/week. STG Duration 2 weeks University Registrar Goal (LTG) Pt will report performing HEP > days/week. LTG Duration 6 weeks Assessment Summary Assessment Pt asked if she could do longer holds when performing the Blanco Big 3 core exercises so PT had patient perform 60 second hold per patient request. Pt also performed seated rows and deadlifts for additional core bracing and hip extensor strengthening. PT informed patient she may be sore in subsquent 24-48 hours d/t new stimulus to musculoskeletal structures. Physical Therapy Plan Frequency and Duration Frequency of Treatment 2x/Week Duration of treatment (weeks) 10 Plan of Care Start Date 12/23/22 Plan of Care End Date 03/23/23 Next Visit Focus/Plan Next Note Type Treatment Note Next Visit Plan elliptical/TM, open book, figure 4 LTR, roll out, deadlift HEP (blanco big 3, bridges, couch stretch), deadlift/ single leg RDL
--- NOTE | 2023-01-06 10:50 | PT.OTN ---
Current Diagnoses Low back pain, unspecified (01/06/23) Physical Therapy Treatment Note PT-OP-A Visit Information Start: 12/23/22 11:25 Freq: Status: Active Protocol: Document 01/06/23 10:46 ED (Rec: 01/06/23 10:50 ED [id number]) Out-Patient Physical Therapy Visit Information Visit Information Visit Type Treatment Note Visit Note 2/6 Visit Start Time 10:00 Visit Stop Time 10:45 Total Visit Minutes 45 PT-OP-B Current Condition Start: 12/23/22 11:25 Freq: Status: Active Protocol: Document 12/23/22 11:26 ED (Rec: 12/23/22 11:38 ED [id number]) Current Condition History of Current Condition Onset Date chronic low back pain Current Complaints low back pain History of Current Condition Pt states that she has chronic low back pain. She had corticosteroid injections a few years ago and states those seem to be wearing off now and wants to get another set of injections but she needs to have 6 or so physical therapy visits first. Pt states that she is physically active with her various jobs but does not do any formal, scheduled exercise routines; she used to do yoga regularly. Pt notes that prolonged sitting and bending forward are activities that aggravate her low back. PT-OP-C Subjective Start: 12/23/22 11:25 Freq: Status: Active Protocol: Document 01/06/23 10:46 ED (Rec: 01/06/23 10:50 ED [id number]) OP-PT Subjective Patient Comments Patient Comments Pt states that she was sore for a few days following last session. She and her partner are going to yoga tomorrow and she hopes to start doing that more regularly especially as her work schedule is starting to be less hectic. PT-OP-K Range of Motion Start: 12/23/22 11:25 Freq: Status: Active Protocol: Document 12/23/22 11:26 ED (Rec: 12/23/22 11:38 ED [id number]) Lumbar Spine Range of Motion Lumbar Spine Active Flexion 100 Extension 100 ROM Limitations Pain Comments patient demonstrates full thoracolumbar ROM. Pain is noted during end range extension. Slight irritation and end range flexion PT-OP-L Special Tests Start: 12/23/22 11:25 Freq: Status: Active Protocol: Document 12/23/22 11:26 ED (Rec: 12/23/22 11:38 ED [id number]) Special Tests Lumbar Spine Special Tests Straight Leg Raise Test Results - Lior Test Results - PT-OP-Q Treatments Start: 12/23/22 11:25 Freq: Status: Active Protocol: Document 01/06/23 10:46 ED (Rec: 01/06/23 10:50 ED [id number]) Cardio Equipment Treadmill Duration (Minutes) 8 Speed 2.5 Incline 1 Therapeutic Exercises Supine Exercises modified curl up Reps/Minutes x60'' tajik plank Reps/Minutes x60'' Prone Exercises bent over hip extensoin Reps/Minutes 3x15 Sidelying Exercises side plank Side bilateral Reps/Minutes x60'' Therapeutic Activity Therapeutic Activity Squat Name STS Reps/Minutes 10# ball Comments [id number] RDL Name RDL Reps/Minutes 1x20 Comments 20# in basket 1x8 single leg RDL PT-OP-T Assessment and Plan Start: 12/23/22 11:25 Freq: Status: Active Protocol: Document 01/06/23 10:46 ED (Rec: 01/06/23 10:50 ED [id number]) Physical Therapy Assessment Goals Four Impairment Oswestry Group Home Goal (LTG) Pt will improve Oswestry Low back pain questionnaire by 10 points to a score <28. LTG Duration 6-8 weeks Three Impairment lifting Short Term Goal (STG) Pt will be able to lift 10# from the ground repeatedly c/o low back pain. STG Duration 3 weeks Sledger Goal (LTG) Pt will be able to lift, carry , and/or pull 10# repeatedly c /o low back pain. LTG Duration 6-8 weeks Two Impairment pain Short Term Goal (STG) Pt will report 10% improvment in low back pain frequency and /or intensity. STG Duration 3 weeks Sledger Goal (LTG) Pt will report 10% improvment in low back pain frequency and /or intensity. LTG Duration 4-8 weeks One Impairment HEP Short Term Goal (STG) Pt will report performing HEP > days/week. STG Duration 2 weeks Sledger Goal (LTG) Pt will report performing HEP > days/week. LTG Duration 6 weeks Assessment Summary Assessment Pt tolerated session well which focused on core isolation exercises including side planks, roll outs, reverse planks, and lumbopelvic extension on PB. She also performed compound movement of front squats and RDLs with 20#. She is going to yoga tomorrow for the first time in many months. Physical Therapy Plan Frequency and Duration Frequency of Treatment 2x/Week Duration of treatment (weeks) 10 Plan of Care Start Date 12/23/22 Plan of Care End Date 03/23/23 Next Visit Focus/Plan Next Note Type Treatment Note Next Visit Plan elliptical/TM, open book, figure 4 LTR, roll out, DB hang squat HEP (blanco big 3, bridges, couch stretch), deadlift/ single leg RDL
--- NOTE | 2023-01-13 11:31 | PT.OTN ---
Current Diagnoses Low back pain, unspecified (01/13/23) Physical Therapy Treatment Note PT-OP-A Visit Information Start: 12/23/22 11:25 Freq: Status: Active Protocol: Document 01/13/23 11:27 ED (Rec: 01/13/23 11:31 ED [id number]) Out-Patient Physical Therapy Visit Information Visit Information Visit Type Treatment Note Visit Note 3/6 Visit Start Time 10:45 Visit Stop Time 11:25 Total Visit Minutes 40 PT-OP-B Current Condition Start: 12/23/22 11:25 Freq: Status: Active Protocol: Document 12/23/22 11:26 ED (Rec: 12/23/22 11:38 ED [id number]) Current Condition History of Current Condition Onset Date chronic low back pain Current Complaints low back pain History of Current Condition Pt states that she has chronic low back pain. She had corticosteroid injections a few years ago and states those seem to be wearing off now and wants to get another set of injections but she needs to have 6 or so physical therapy visits first. Pt states that she is physically active with her various jobs but does not do any formal, scheduled exercise routines; she used to do yoga regularly. Pt notes that prolonged sitting and bending forward are activities that aggravate her low back. PT-OP-C Subjective Start: 12/23/22 11:25 Freq: Status: Active Protocol: Document 01/13/23 11:27 ED (Rec: 01/13/23 11:31 ED [id number]) OP-PT Subjective Patient Comments Patient Comments Pt went to yoga last week and enjoyed; she may start trying to go more frequently. She states she has been having soreness since last PT session and thinks it's due to the RDLs she performed. PT-OP-K Range of Motion Start: 12/23/22 11:25 Freq: Status: Active Protocol: Document 12/23/22 11:26 ED (Rec: 12/23/22 11:38 ED [id number]) Lumbar Spine Range of Motion Lumbar Spine Active Flexion 100 Extension 100 ROM Limitations Pain Comments patient demonstrates full thoracolumbar ROM. Pain is noted during end range extension. Slight irritation and end range flexion PT-OP-L Special Tests Start: 12/23/22 11:25 Freq: Status: Active Protocol: Document 12/23/22 11:26 ED (Rec: 12/23/22 11:38 ED [id number]) Special Tests Lumbar Spine Special Tests Straight Leg Raise Test Results - Lior Test Results - PT-OP-Q Treatments Start: 12/23/22 11:25 Freq: Status: Active Protocol: Document 01/13/23 11:27 ED (Rec: 01/13/23 11:31 ED [id number]) Cardio Equipment Treadmill Duration (Minutes) 8 Speed 2.5 Incline 1 Therapeutic Exercises Supine Exercises LTR Supine Exercise Name figure 4 LTR spanish plank Reps/Minutes x60'' Sidelying Exercises open book Reps/Minutes 1x5 Sitting Exercises PB lumbar flexion Equipment Used physioball Reps/Minutes 3x10 Therapeutic Activity Therapeutic Activity Squat Name STS Reps/Minutes 10# ball Comments [id number] PT-OP-T Assessment and Plan Start: 12/23/22 11:25 Freq: Status: Active Protocol: Document 01/13/23 11:27 ED (Rec: 01/13/23 11:31 ED [id number]) Physical Therapy Assessment Goals Four Impairment Oswestry Longterm Goal (LTG) Pt will improve Oswestry Low back pain questionnaire by 10 points to a score <28. LTG Duration 6-8 weeks Three Impairment lifting Short Term Goal (STG) Pt will be able to lift 10# from the ground repeatedly c/o low back pain. STG Duration 3 weeks Category Development Analyst Goal (LTG) Pt will be able to lift, carry , and/or pull 10# repeatedly c /o low back pain. LTG Duration 6-8 weeks Two Impairment pain Short Term Goal (STG) Pt will report 10% improvment in low back pain frequency and /or intensity. STG Duration 3 weeks Category Development Analyst Goal (LTG) Pt will report 10% improvment in low back pain frequency and /or intensity. LTG Duration 4-8 weeks One Impairment HEP Short Term Goal (STG) Pt will report performing HEP > days/week. STG Duration 2 weeks Longterm Goal (LTG) Pt will report performing HEP > days/week. LTG Duration 6 weeks Assessment Summary Assessment PT avoided patient performing RDLs d/t exacerbation of LBP after last session. Worked on mobility drills and sit<> stands instead. Pt had relief when performing seated lumbar flexion using physioball. Physical Therapy Plan Frequency and Duration Frequency of Treatment 2x/Week Duration of treatment (weeks) 10 Plan of Care Start Date 12/23/22 Plan of Care End Date 03/23/23 Next Visit Focus/Plan Next Note Type Treatment Note Next Visit Plan elliptical/TM, open book, figure 4 LTR, roll out, DB hang squat, bent over hip extension, wide java web services developer row HEP (blanco big 3, bridges, couch stretch), deadlift/ single leg RDL
--- NOTE | 2023-01-20 11:35 | PT.OTN ---
Current Diagnoses Low back pain, unspecified (01/20/23) Physical Therapy Treatment Note PT-OP-A Visit Information Start: 12/23/22 11:25 Freq: Status: Active Protocol: Document 01/20/23 11:30 ED (Rec: 01/20/23 11:35 ED [id number]) Out-Patient Physical Therapy Visit Information Visit Information Visit Type Treatment Note Visit Note 4/6 Visit Start Time 10:45 Visit Stop Time 11:30 Total Visit Minutes 45 PT-OP-B Current Condition Start: 12/23/22 11:25 Freq: Status: Active Protocol: Document 12/23/22 11:26 ED (Rec: 12/23/22 11:38 ED [id number]) Current Condition History of Current Condition Onset Date chronic low back pain Current Complaints low back pain History of Current Condition Pt states that she has chronic low back pain. She had corticosteroid injections a few years ago and states those seem to be wearing off now and wants to get another set of injections but she needs to have 6 or so physical therapy visits first. Pt states that she is physically active with her various jobs but does not do any formal, scheduled exercise routines; she used to do yoga regularly. Pt notes that prolonged sitting and bending forward are activities that aggravate her low back. PT-OP-C Subjective Start: 12/23/22 11:25 Freq: Status: Active Protocol: Document 01/20/23 11:30 ED (Rec: 01/20/23 11:35 ED [id number]) OP-PT Subjective Patient Comments Patient Comments Pt states she wants to avoid any activities that required bending at the hip or back. She states her low back has been bothering her and she has many muscle knots. PT-OP-K Range of Motion Start: 12/23/22 11:25 Freq: Status: Active Protocol: Document 12/23/22 11:26 ED (Rec: 12/23/22 11:38 ED [id number]) Lumbar Spine Range of Motion Lumbar Spine Active Flexion 100 Extension 100 ROM Limitations Pain Comments patient demonstrates full thoracolumbar ROM. Pain is noted during end range extension. Slight irritation and end range flexion PT-OP-L Special Tests Start: 12/23/22 11:25 Freq: Status: Active Protocol: Document 12/23/22 11:26 ED (Rec: 12/23/22 11:38 ED [id number]) Special Tests Lumbar Spine Special Tests Straight Leg Raise Test Results - Lior Test Results - PT-OP-Q Treatments Start: 12/23/22 11:25 Freq: Status: Active Protocol: Document 01/20/23 11:30 ED (Rec: 01/20/23 11:35 ED [id number]) Cardio Equipment Treadmill Duration (Minutes) 8 Speed 2.5 Incline 1 Therapeutic Exercises Supine Exercises LTR Supine Exercise Name figure 4 LTR Sidelying Exercises side plank Side bilateral Reps/Minutes x60'' Sitting Exercises lat pull down Equipment Used L3 Reps/Minutes [id number] PB lumbar flexion Equipment Used physioball Reps/Minutes 3x10 neutral airport operations officer row Resistance L5 Equipment Used machine Reps/Minutes [id number] Standing Exercises core rotatoin Standing Exercise Name speed cords Resistance blue Reps/Minutes 2x8 PT-OP-T Assessment and Plan Start: 12/23/22 11:25 Freq: Status: Active Protocol: Document 01/20/23 11:30 ED (Rec: 01/20/23 11:35 ED [id number]) Physical Therapy Assessment Goals Four Impairment Oswestry Snf Goal (LTG) Pt will improve Oswestry Low back pain questionnaire by 10 points to a score <28. LTG Duration 6-8 weeks Three Impairment lifting Short Term Goal (STG) Pt will be able to lift 10# from the ground repeatedly c/o low back pain. STG Duration 3 weeks Joinery Machinist Goal (LTG) Pt will be able to lift, carry , and/or pull 10# repeatedly c /o low back pain. LTG Duration 6-8 weeks Two Impairment pain Short Term Goal (STG) Pt will report 10% improvment in low back pain frequency and /or intensity. STG Duration 3 weeks Joinery Machinist Goal (LTG) Pt will report 10% improvment in low back pain frequency and /or intensity. LTG Duration 4-8 weeks One Impairment HEP Short Term Goal (STG) Pt will report performing HEP > days/week. STG Duration 2 weeks Joinery Machinist Goal (LTG) Pt will report performing HEP > days/week. LTG Duration 6 weeks Assessment Summary Assessment PT avoided patient performing RDLs d/t exacerbation of LBP after last session. Pt had relief when performing seated lumbar flexion using physioball. Physical Therapy Plan Frequency and Duration Frequency of Treatment 2x/Week Duration of treatment (weeks) 10 Plan of Care Start Date 12/23/22 Plan of Care End Date 03/23/23 Next Visit Focus/Plan Next Visit Plan elliptical, figure 4 ltr, row, pull down, core rotation
--- NOTE | 2023-02-03 11:35 | PT.OTN ---
Current Diagnoses Low back pain, unspecified (02/03/23) Physical Therapy Treatment Note PT-OP-A Visit Information Start: 12/23/22 11:25 Freq: Status: Active Protocol: Document 02/03/23 11:26 ED (Rec: 02/03/23 11:35 ED [id number]) Out-Patient Physical Therapy Visit Information Visit Information Visit Type Treatment Note Visit Note 5/6 Visit Start Time 10:45 Visit Stop Time 11:30 Total Visit Minutes 45 PT-OP-B Current Condition Start: 12/23/22 11:25 Freq: Status: Active Protocol: Document 12/23/22 11:26 ED (Rec: 12/23/22 11:38 ED [id number]) Current Condition History of Current Condition Onset Date chronic low back pain Current Complaints low back pain History of Current Condition Pt states that she has chronic low back pain. She had corticosteroid injections a few years ago and states those seem to be wearing off now and wants to get another set of injections but she needs to have 6 or so physical therapy visits first. Pt states that she is physically active with her various jobs but does not do any formal, scheduled exercise routines; she used to do yoga regularly. Pt notes that prolonged sitting and bending forward are activities that aggravate her low back. PT-OP-C Subjective Start: 12/23/22 11:25 Freq: Status: Active Protocol: Document 02/03/23 11:26 ED (Rec: 02/03/23 11:35 ED [id number]) OP-PT Subjective Patient Comments Patient Comments Pt states she scheduled more PT visits. She states she wants to continue strengthening her core and legs but wants to avoid activities that require her to bend and load her low back such as hip hinges. She also notes quitting smoking in the past 3 days and was sick last week so she's not quite feeling 100% today. PT-OP-K Range of Motion Start: 12/23/22 11:25 Freq: Status: Active Protocol: Document 12/23/22 11:26 ED (Rec: 12/23/22 11:38 ED [id number]) Lumbar Spine Range of Motion Lumbar Spine Active Flexion 100 Extension 100 ROM Limitations Pain Comments patient demonstrates full thoracolumbar ROM. Pain is noted during end range extension. Slight irritation and end range flexion PT-OP-L Special Tests Start: 12/23/22 11:25 Freq: Status: Active Protocol: Document 12/23/22 11:26 ED (Rec: 12/23/22 11:38 ED [id number]) Special Tests Lumbar Spine Special Tests Straight Leg Raise Test Results - Lior Test Results - PT-OP-Q Treatments Start: 12/23/22 11:25 Freq: Status: Active Protocol: Document 02/03/23 11:26 ED (Rec: 02/03/23 11:35 ED [id number]) Cardio Equipment Treadmill Duration (Minutes) 8 Speed 2.5 Incline 1 Therapeutic Exercises Supine Exercises LTR Supine Exercise Name figure 4 LTR greenlandic plank Reps/Minutes x60'' Sidelying Exercises side plank Side bilateral Reps/Minutes x60'' Sitting Exercises lat pull down Equipment Used L3 Reps/Minutes 1c29-22 Standing Exercises banded walk Standing Exercise Name lateral band walk Equipment Used turquoise band Reps/Minutes 2x10 steps Therapeutic Activity Therapeutic Activity sumo DL Reps/Minutes 2x8 Comments pt asked about how to do sumo deadlift split squat Name split squat, RFESS Reps/Minutes 2x8/leg Comments introduced split squat and rear foot elevated split squat Squat Name STS Reps/Minutes 10# ball Comments 5x14-05 PT-OP-T Assessment and Plan Start: 12/23/22 11:25 Freq: Status: Active Protocol: Document 02/03/23 11:26 ED (Rec: 02/03/23 11:35 ED [id number]) Physical Therapy Assessment Goals Four Impairment Oswestry Remote Sensing Scientist Goal (LTG) Pt will improve Oswestry Low back pain questionnaire by 10 points to a score <28. LTG Duration 6-8 weeks Three Impairment lifting Short Term Goal (STG) Pt will be able to lift 10# from the ground repeatedly c/o low back pain. STG Duration 3 weeks [facility] Goal (LTG) Pt will be able to lift, carry , and/or pull 10# repeatedly c /o low back pain. LTG Duration 6-8 weeks Two Impairment pain Short Term Goal (STG) Pt will report 10% improvment in low back pain frequency and /or intensity. STG Duration 3 weeks [facility] Goal (LTG) Pt will report 10% improvment in low back pain frequency and /or intensity. LTG Duration 4-8 weeks One Impairment HEP Short Term Goal (STG) Pt will report performing HEP > days/week. STG Duration 2 weeks Remote Sensing Scientist Goal (LTG) Pt will report performing HEP > days/week. LTG Duration 6 weeks Assessment Summary Assessment Per patient request, PT demonstrated and had patient perform various squatting patterns and the sumo deadlift . She performed split squats, walking lunges, and rear foot elevated split squats. Additionally, patient performed some sumo deadlifts which is a good substitute for patient as she is apprehensive about activities/ exercises that require her to stress her low back such as a typical RDL or deadlift. Physical Therapy Plan Frequency and Duration Frequency of Treatment 2x/Week Duration of treatment (weeks) 10 Plan of Care Start Date 12/23/22 Plan of Care End Date 03/23/23 Next Visit Focus/Plan Next Note Type Treatment Note Next Visit Plan TM, figure 4 LTR, row, pull down, sumo DL, split squat variations, core exercises
--- NOTE | 2023-02-05 11:11 | PT.OTN ---
Current Diagnoses Low back pain, unspecified (02/05/23) Physical Therapy Treatment Note PT-OP-A Visit Information Start: 12/23/22 11:25 Freq: Status: Active Protocol: Document 02/05/23 10:23 [facility] (Rec: 02/05/23 11:11 [facility] [id number]) Out-Patient Physical Therapy Visit Information Visit Information Visit Type Treatment Note Visit Note 10/06 Visit Start Time 10:20 Visit Stop Time 11:07 Total Visit Minutes 47 Visit Number 6 Number of MANAGER CARE Visits 1 PT-OP-B Current Condition Start: 12/23/22 11:25 Freq: Status: Active Protocol: Document 12/23/22 11:26 ED (Rec: 12/23/22 11:38 ED [id number]) Current Condition History of Current Condition Onset Date chronic low back pain Current Complaints low back pain History of Current Condition Pt states that she has chronic low back pain. She had corticosteroid injections a few years ago and states those seem to be wearing off now and wants to get another set of injections but she needs to have 6 or so physical therapy visits first. Pt states that she is physically active with her various jobs but does not do any formal, scheduled exercise routines; she used to do yoga regularly. Pt notes that prolonged sitting and bending forward are activities that aggravate her low back. PT-OP-C Subjective Start: 12/23/22 11:25 Freq: Status: Active Protocol: Document 02/05/23 10:23 [facility] (Rec: 02/05/23 11:11 [facility] [id number]) OP-PT Subjective Patient Comments Patient Comments Deirdre felt pretty sore especially in her thights after her last visit and didn' t work out yesterday and stretched instead. She thinks it's good over all. Her low back is feeling better. She quit smoking and today is Day 4. PT-OP-K Range of Motion Start: 12/23/22 11:25 Freq: Status: Active Protocol: Document 12/23/22 11:26 ED (Rec: 12/23/22 11:38 ED [id number]) Lumbar Spine Range of Motion Lumbar Spine Active Flexion 100 Extension 100 ROM Limitations Pain Comments patient demonstrates full thoracolumbar ROM. Pain is noted during end range extension. Slight irritation and end range flexion PT-OP-L Special Tests Start: 08/23/23 11:25 Freq: Status: Active Protocol: Document 12/23/22 11:26 ED (Rec: 12/23/22 11:38 ED [id number]) Special Tests Lumbar Spine Special Tests Straight Leg Raise Test Results - Lior Test Results - PT-OP-Q Treatments Start: 12/23/22 11:25 Freq: Status: Active Protocol: Document 02/05/23 10:23 [facility] (Rec: 02/05/23 11:11 [facility] [id number]) Cardio Equipment Treadmill Duration (Minutes) 9 Speed 3.3>3.5 Incline 4>1 Therapeutic Exercises Supine Exercises hamstring stretch Supine Exercise Name w/ ankle pumps Side bilateral Equipment Used c/ strap Reps/Minutes x45 Comments L>R tightness, positive feedback response DKTC Supine Exercise Name double knee to chest stretch Side bilateral Reps/Minutes x15s LTR Supine Exercise Name figure 4 LTR hebrew plank Equipment Used blue foam roll under calves Reps/Minutes x60'' Prone Exercises pigeon Prone Exercise Name on forearms Side bilateral Reps/Minutes x45s ea Comments cues for lumbar hyperextension Sidelying Exercises side plank Side bilateral Reps/Minutes x60'' Sitting Exercises lat pull down Resistance 30#>40# Equipment Used L3>L4 Reps/Minutes x15 ea Comments cues for handgrip, breathwork neutral cloth laminating supervisor row Side bilateral Resistance L5>L4 (50#>40# Equipment Used machine Reps/Minutes 50#x5, 40#x15 ea PT-OP-T Assessment and Plan Start: 12/23/22 11:25 Freq: Status: Active Protocol: Document 02/05/23 10:23 [facility] (Rec: 02/05/23 11:11 [facility] [id number]) Physical Therapy Assessment Goals Four Impairment Oswestry Target Protection Specialist Goal (LTG) Pt will improve Oswestry Low back pain questionnaire by 10 points to a score <28. LTG Duration 6-8 weeks Three Impairment lifting Short Term Goal (STG) Pt will be able to lift 10# from the ground repeatedly c/o low back pain. STG Duration 3 weeks Target Protection Specialist Goal (LTG) Pt will be able to lift, carry , and/or pull 10# repeatedly c /o low back pain. LTG Duration 6-8 weeks Two Impairment pain Short Term Goal (STG) Pt will report 10% improvment in low back pain frequency and /or intensity. STG Duration 3 weeks Target Protection Specialist Goal (LTG) Pt will report 10% improvment in low back pain frequency and /or intensity. LTG Duration 4-8 weeks One Impairment HEP Short Term Goal (STG) Pt will report performing HEP > days/week. STG Duration 2 weeks Target Protection Specialist Goal (LTG) Pt will report performing HEP > days/week. LTG Duration 6 weeks Assessment Summary Assessment Pt is fully engaged and requires cues for breathwork, cervical alignment and chin tuck throughout session with improving self-awareness by end of session. She requires cues for excessive pelvic rotation bilaterally in bird dog which improve w/ biofeedback and cues for TrA activation (belly button gently toward spine). Brief discussion of strength vs endurance re: rows and encouragement to decrease resistance from 50#>40# to increase reps with pt expressing understanding. Physical Therapy Plan Frequency and Duration Frequency of Treatment 2x/Week Duration of treatment (weeks) 10 Plan of Care Start Date 12/23/22 Plan of Care End Date 03/23/23 Therapeutic Interventions Therapeutic Interventions Gait Training,Home Exercise Program,Joint Mobilizations, Manual Therapy,Neuromuscular Re-education,Patient/Caregiver Education,Self-Care/Home Management,Taping,Therapeutic Activities,Therapeutic Exercises Modalities Biofeedback,Cold Pack/Ice Massage,Electric Stimulation, Hot Packs,Iontophoresis, Ultrasound Next Visit Focus/Plan Next Note Type Treatment Note Next Visit Plan TM, figure 4 LTR, row, pull down, sumo DL, split squat variations, core exercises
--- NOTE | 2023-02-10 09:02 | PT.OTN ---
Current Diagnoses Low back pain, unspecified (02/10/23) Physical Therapy Treatment Note PT-OP-A Visit Information Start: 12/23/22 11:25 Freq: Status: Active Protocol: Document 02/10/23 08:59 ED (Rec: 02/10/23 09:02 ED [id number]) Out-Patient Physical Therapy Visit Information Visit Information Visit Type Treatment Note Visit Start Time 08:20 Visit Stop Time 09:00 Total Visit Minutes 40 Visit Number 7 PT-OP-B Current Condition Start: 12/23/22 11:25 Freq: Status: Active Protocol: Document 12/23/22 11:26 ED (Rec: 12/23/22 11:38 ED [id number]) Current Condition History of Current Condition Onset Date chronic low back pain Current Complaints low back pain History of Current Condition Pt states that she has chronic low back pain. She had corticosteroid injections a few years ago and states those seem to be wearing off now and wants to get another set of injections but she needs to have 6 or so physical therapy visits first. Pt states that she is physically active with her various jobs but does not do any formal, scheduled exercise routines; she used to do yoga regularly. Pt notes that prolonged sitting and bending forward are activities that aggravate her low back. PT-OP-C Subjective Start: 12/23/22 11:25 Freq: Status: Active Protocol: Document 02/10/23 08:59 ED (Rec: 02/10/23 09:02 ED [id number]) OP-PT Subjective Patient Comments Patient Comments Pt states that she has had a change of mind in regards to PT. For the first few weeks she just wanted to get the visits done so she could have an injection but now she is much more optimistic about PT and wants to take advantage of it. PT-OP-K Range of Motion Start: 12/23/22 11:25 Freq: Status: Active Protocol: Document 12/23/22 11:26 ED (Rec: 12/23/22 11:38 ED [id number]) Lumbar Spine Range of Motion Lumbar Spine Active Flexion 100 Extension 100 ROM Limitations Pain Comments patient demonstrates full thoracolumbar ROM. Pain is noted during end range extension. Slight irritation and end range flexion PT-OP-L Special Tests Start: 12/23/22 11:25 Freq: Status: Active Protocol: Document 12/23/22 11:26 ED (Rec: 08/23/23 11:38 ED [id number]) Special Tests Lumbar Spine Special Tests Straight Leg Raise Test Results - Lior Test Results - PT-OP-Q Treatments Start: 12/23/22 11:25 Freq: Status: Active Protocol: Document 02/10/23 08:59 ED (Rec: 02/10/23 09:02 ED [id number]) Cardio Equipment Treadmill Duration (Minutes) 8 Speed 2.5 Incline 1 Therapeutic Exercises Supine Exercises hamstring stretch Supine Exercise Name w/ ankle pumps Side bilateral Equipment Used c/ strap Reps/Minutes x45 Comments L>R tightness, positive feedback response LTR Supine Exercise Name figure 4 LTR micronesian plank Equipment Used blue foam roll under calves Reps/Minutes x60'' Sidelying Exercises side plank Side bilateral Reps/Minutes x60'' Sitting Exercises neutral cooker soda row Side bilateral Resistance L5>L4 (50#>40# Equipment Used machine Reps/Minutes 50#x5, 40#x15 ea Standing Exercises banded walk Standing Exercise Name lateral band walk Equipment Used turquoise band Reps/Minutes 2x10 steps Therapeutic Activity Therapeutic Activity sumo DL Reps/Minutes 2x8 Comments pt asked about how to do sumo deadlift split squat Name split squat, RFESS Reps/Minutes 2x8/leg Comments introduced split squat and rear foot elevated split squat PT-OP-T Assessment and Plan Start: 12/23/22 11:25 Freq: Status: Active Protocol: Document 02/10/23 08:59 ED (Rec: 02/10/23 09:02 ED [id number]) Physical Therapy Assessment Goals Four Impairment Oswestry Hearing Examiner Goal (LTG) Pt will improve Oswestry Low back pain questionnaire by 10 points to a score <28. LTG Duration 6-8 weeks Three Impairment lifting Short Term Goal (STG) Pt will be able to lift 10# from the ground repeatedly c/o low back pain. STG Duration 3 weeks Shelter Goal (LTG) Pt will be able to lift, carry , and/or pull 10# repeatedly c /o low back pain. LTG Duration 6-8 weeks Two Impairment pain Short Term Goal (STG) Pt will report 10% improvment in low back pain frequency and /or intensity. STG Duration 3 weeks Shelter Goal (LTG) Pt will report 10% improvment in low back pain frequency and /or intensity. LTG Duration 4-8 weeks One Impairment HEP Short Term Goal (STG) Pt will report performing HEP > days/week. STG Duration 2 weeks Hearing Examiner Goal (LTG) Pt will report performing HEP > days/week. LTG Duration 6 weeks Assessment Summary Assessment Pt is good participant in PT and very engaged during sessions. Worked on a multitude of exercises for core, hip, and back. All able to be done witout pain. Pt still apprehensive about doing activities that requires her to bend over such as hip hinges and bent over rows. Physical Therapy Plan Frequency and Duration Frequency of Treatment 2x/Week Duration of treatment (weeks) 10 Plan of Care Start Date 12/23/22 Plan of Care End Date 03/23/23 Therapeutic Interventions Therapeutic Interventions Gait Training,Home Exercise Program,Joint Mobilizations, Manual Therapy,Neuromuscular Re-education,Patient/Caregiver Education,Self-Care/Home Management,Taping,Therapeutic Activities,Therapeutic Exercises Modalities Biofeedback,Cold Pack/Ice Massage,Electric Stimulation, Hot Packs,Iontophoresis, Ultrasound Next Visit Focus/Plan Next Note Type Treatment Note Next Visit Plan TM, figure 4 LTR, row, pull down, sumo DL, split squat variations, core exercises
--- NOTE | 2023-02-15 15:15 | PT.OTN ---
Addendum entered and electronically signed by Janis Rodrigues, [employer]ESS [employer] SUPERVISOR 02/15/23 15:28: 10th visit note next tx. Original Note: Current Diagnoses Low back pain, unspecified (02/15/23) Physical Therapy Treatment Note PT-OP-A Visit Information Start: 12/23/22 11:25 Freq: Status: Active Protocol: Document 02/15/23 14:32 SP (Rec: 02/15/23 15:26 SP [id number]) Out-Patient Physical Therapy Visit Information Visit Information Visit Type Treatment Note Visit Start Time 14:32 Visit Stop Time 15:15 Total Visit Minutes 43 Visit Number 8 Number of MATTRESS AND [employer]SPR[employer] SUPERVISOR Visits 1 PT-OP-B Current Condition Start: 12/23/22 11:25 Freq: Status: Active Protocol: Document 12/23/22 11:26 ED (Rec: 12/23/22 11:38 ED [id number]) Current Condition History of Current Condition Onset Date chronic low back pain Current Complaints low back pain History of Current Condition Pt states that she has chronic low back pain. She had corticosteroid injections a few years ago and states those seem to be wearing off now and wants to get another set of injections but she needs to have 6 or so physical therapy visits first. Pt states that she is physically active with her various jobs but does not do any formal, scheduled exercise routines; she used to do yoga regularly. Pt notes that prolonged sitting and bending forward are activities that aggravate her low back. PT-OP-C Subjective Start: 12/23/22 11:25 Freq: Status: Active Protocol: Document 02/15/23 14:32 SP (Rec: 02/15/23 15:26 SP [id number]) OP-PT Subjective Patient Comments Patient Comments Pt reports has been working alot hrs ( 2 shifts/day and hasn't really been able to do HEP and know will feel better after PT. PT-OP-K Range of Motion Start: 12/23/22 11:25 Freq: Status: Active Protocol: Document 12/23/22 11:26 ED (Rec: 12/23/22 11:38 ED [id number]) Lumbar Spine Range of Motion Lumbar Spine Active Flexion 100 Extension 100 ROM Limitations Pain Comments patient demonstrates full thoracolumbar ROM. Pain is noted during end range extension. Slight irritation and end range flexion PT-OP-L Special Tests Start: 12/23/22 11:25 Freq: Status: Active Protocol: Document 12/23/22 11:26 ED (Rec: 12/23/22 11:38 ED [id number]) Special Tests Lumbar Spine Special Tests Straight Leg Raise Test Results - Lior Test Results - PT-OP-Q Treatments Start: 12/23/22 11:25 Freq: Status: Active Protocol: Document 02/15/23 14:32 SP (Rec: 02/15/23 15:26 SP [id number]) Cardio Equipment Treadmill Duration (Minutes) 9 Speed 5.5> 3.5 contact rails> 0 no UE support Incline 3.5 incline jog 1.5 min, 3.9-3 .7 no UE support, last 2 min cool down 2.9 Other cued allow arm swing Therapeutic Exercises Supine Exercises hamstring stretch Supine Exercise Name w/ ankle pumps Side bilateral Equipment Used grasp behind thigh Reps/Minutes x45 Comments L>R tightness, good feedback response LTR Supine Exercise Name figure 4 LTR Side bilateral Reps/Minutes 30 stretch Comments good feedback lateral hip and LB stretch croatian plank Equipment Used blue/yellow foam roll under calves Reps/Minutes x60'' Comments cued PPT, decrease LB discomfort Prone Exercises child's pose Reps/Minutes 60 Comments good back stretch elbow plank Prone Exercise Name forearm plank off feet Reps/Minutes 60 Comments cues for PPT, glut fac, TKE- last 20 sec LB tension Sidelying Exercises side plank Side bilateral Reps/Minutes x60'' Sitting Exercises pull down rear facing Resistance double blue Equipment Used seated 65 cm Tball lat pull down Resistance 30#>40# Equipment Used L3>L4 Reps/Minutes x15 ea Comments cues for handgrip, breathwork neutral water fabricator operator row Side bilateral Resistance 40# Equipment Used machine Reps/Minutes 40#x12 ea Comments cued no [place] recruitment Standing Exercises squat row Standing Exercise Name initiated in PT Resistance 30# cable Reps/Minutes x15 Comments cued hip hinge, no shld shrug end range row standing, gd deep squat &UE ext Pull down Standing Exercise Name shld ext Side bilateral Resistance 10# easy>20# cable Reps/Minutes x5, x8 reps good stab, last 2 reps Comments cued chest lift, LT fac decrease LB tension recruitment banded walk Standing Exercise Name lateral band walk Equipment Used turquoise band Reps/Minutes 2x10 steps Comments cued Neutral pelvis/not LS ext arch, less back tension reported- gd hip abd PT-OP-T Assessment and Plan Start: 12/23/22 11:25 Freq: Status: Active Protocol: Document 02/15/23 14:32 SP (Rec: 02/15/23 15:26 SP [id number]) Physical Therapy Assessment Goals Four Impairment Oswestry Business Support Coordinator Goal (LTG) Pt will improve Oswestry Low back pain questionnaire by 10 points to a score <28. LTG Duration 6-8 weeks Three Impairment lifting Short Term Goal (STG) Pt will be able to lift 10# from the ground repeatedly c/o low back pain. STG Duration 3 weeks Business Support Coordinator Goal (LTG) Pt will be able to lift, carry , and/or pull 10# repeatedly c /o low back pain. LTG Duration 6-8 weeks Two Impairment pain Short Term Goal (STG) Pt will report 10% improvment in low back pain frequency and /or intensity. STG Duration 3 weeks Business Support Coordinator Goal (LTG) Pt will report 10% improvment in low back pain frequency and /or intensity. LTG Duration 4-8 weeks One Impairment HEP Short Term Goal (STG) Pt will report performing HEP > days/week. STG Duration 2 weeks Business Support Coordinator Goal (LTG) Pt will report performing HEP > days/week. LTG Duration 6 weeks Assessment Summary Assessment Pt good effort this tx, occasional cues for form: CS neutral in side plank, PPT/NS during supine/prone planks decrease LB discomfort. Physical Therapy Plan Frequency and Duration Frequency of Treatment 2x/Week Duration of treatment (weeks) 10 Plan of Care Start Date 12/23/22 Plan of Care End Date 03/23/23 Therapeutic Interventions Therapeutic Interventions Gait Training,Home Exercise Program,Joint Mobilizations, Manual Therapy,Neuromuscular Re-education,Patient/Caregiver Education,Self-Care/Home Management,Taping,Therapeutic Activities,Therapeutic Exercises Modalities Biofeedback,Cold Pack/Ice Massage,Electric Stimulation, Hot Packs,Iontophoresis, Ultrasound Next Visit Focus/Plan Next Note Type Treatment Note Next Visit Plan TM, figure 4 LTR, row, pull down, sumo DL, split squat variations, core exercises
--- NOTE | 2023-02-17 09:50 | PT.OTN ---
Current Diagnoses Low back pain, unspecified (02/17/23) Physical Therapy Treatment Note PT-OP-A Visit Information Start: 12/23/22 11:25 Freq: Status: Active Protocol: Document 02/17/23 09:46 ED (Rec: 02/17/23 09:50 ED [id number]) Out-Patient Physical Therapy Visit Information Visit Information Visit Type Treatment Note Visit Start Time 09:05 Visit Stop Time 09:45 Total Visit Minutes 40 Visit Number 9 Number of PROCESSING ASSISTANT Visits 0 PT-OP-B Current Condition Start: 12/23/22 11:25 Freq: Status: Active Protocol: Document 12/23/22 11:26 ED (Rec: 12/23/22 11:38 ED [id number]) Current Condition History of Current Condition Onset Date chronic low back pain Current Complaints low back pain History of Current Condition Pt states that she has chronic low back pain. She had corticosteroid injections a few years ago and states those seem to be wearing off now and wants to get another set of injections but she needs to have 6 or so physical therapy visits first. Pt states that she is physically active with her various jobs but does not do any formal, scheduled exercise routines; she used to do yoga regularly. Pt notes that prolonged sitting and bending forward are activities that aggravate her low back. PT-OP-C Subjective Start: 12/23/22 11:25 Freq: Status: Active Protocol: Document 02/17/23 09:46 ED (Rec: 02/17/23 09:50 ED [id number]) OP-PT Subjective Patient Comments Patient Comments Pt states that her thumb has been hurting her so much for the past few days that she can hardly concentrate. States she doesn't have OT evaluation until March. PT-OP-K Range of Motion Start: 12/23/22 11:25 Freq: Status: Active Protocol: Document 12/23/22 11:26 ED (Rec: 12/23/22 11:38 ED [id number]) Lumbar Spine Range of Motion Lumbar Spine Active Flexion 100 Extension 100 ROM Limitations Pain Comments patient demonstrates full thoracolumbar ROM. Pain is noted during end range extension. Slight irritation and end range flexion PT-OP-L Special Tests Start: 12/23/22 11:25 Freq: Status: Active Protocol: Document 12/23/22 11:26 ED (Rec: 12/23/22 11:38 ED [id number]) Special Tests Lumbar Spine Special Tests Straight Leg Raise Test Results - Lior Test Results - PT-OP-Q Treatments Start: 12/23/22 11:25 Freq: Status: Active Protocol: Document 02/17/23 09:46 ED (Rec: 02/17/23 09:50 ED [id number]) Cardio Equipment Treadmill Duration (Minutes) 8 Speed 2.5 Incline 1 Manual Therapy Treatment Taping thumb spica tape Body Location R thumb Type of Tape Kinesio Tape Comments thumb spica tape PT-OP-T Assessment and Plan Start: 12/23/22 11:25 Freq: Status: Active Protocol: Document 02/17/23 09:46 ED (Rec: 02/17/23 09:50 ED [id number]) Physical Therapy Assessment Goals Four Impairment Oswestry Prison Goal (LTG) Pt will improve Oswestry Low back pain questionnaire by 10 points to a score <28. LTG Duration 6-8 weeks Three Impairment lifting Short Term Goal (STG) Pt will be able to lift 10# from the ground repeatedly c/o low back pain. STG Duration 3 weeks Prison Goal (LTG) Pt will be able to lift, carry , and/or pull 10# repeatedly c /o low back pain. LTG Duration 6-8 weeks Two Impairment pain Short Term Goal (STG) Pt will report 10% improvment in low back pain frequency and /or intensity. STG Duration 3 weeks Prison Goal (LTG) Pt will report 10% improvment in low back pain frequency and /or intensity. LTG Duration 4-8 weeks One Impairment HEP Short Term Goal (STG) Pt will report performing HEP > days/week. STG Duration 2 weeks Refrigerator Mover Goal (LTG) Pt will report performing HEP > days/week. LTG Duration 6 weeks Assessment Summary Assessment Session was focused on patient education regarding pain and acute injury management. Pt requested not performing exercises today d/t inability to focus fully and pain in thumb. PT demonstrated a thumb spica tape using kinesiotape for patient. Instructed her the tape should stay on for a few days and that she may be able to do it at home with athletic tape. Physical Therapy Plan Frequency and Duration Frequency of Treatment 2x/Week Duration of treatment (weeks) 10 Plan of Care Start Date 12/23/22 Plan of Care End Date 03/23/23 Therapeutic Interventions Therapeutic Interventions Gait Training,Home Exercise Program,Joint Mobilizations, Manual Therapy,Neuromuscular Re-education,Patient/Caregiver Education,Self-Care/Home Management,Taping,Therapeutic Activities,Therapeutic Exercises Modalities Biofeedback,Cold Pack/Ice Massage,Electric Stimulation, Hot Packs,Iontophoresis, Ultrasound Next Visit Focus/Plan Next Note Type Treatment Note Next Visit Plan TM, figure 4 LTR, row, pull down, sumo DL, split squat variations, core exercises
--- NOTE | 2023-02-22 09:50 | PT.OTN ---
Current Diagnoses Low back pain, unspecified (02/22/23) Physical Therapy Treatment Note PT-OP-A Visit Information Start: 12/23/22 11:25 Freq: Status: Active Protocol: Document 02/22/23 09:02 SP (Rec: 02/22/23 09:54 SP [id number]) Out-Patient Physical Therapy Visit Information Visit Information Visit Type Treatment Note Visit Note pt 11 min late for appt Visit Start Time 09:11 Visit Stop Time 09:50 Total Visit Minutes 39 Visit Number 10 Number of BRAND SALES MANAGER Visits 1 PT-OP-B Current Condition Start: 12/23/22 11:25 Freq: Status: Active Protocol: Document 12/23/22 11:26 ED (Rec: 12/23/22 11:38 ED [id number]) Current Condition History of Current Condition Onset Date chronic low back pain Current Complaints low back pain History of Current Condition Pt states that she has chronic low back pain. She had corticosteroid injections a few years ago and states those seem to be wearing off now and wants to get another set of injections but she needs to have 6 or so physical therapy visits first. Pt states that she is physically active with her various jobs but does not do any formal, scheduled exercise routines; she used to do yoga regularly. Pt notes that prolonged sitting and bending forward are activities that aggravate her low back. 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 She states feeling pretty good today, still not smoking, walking alot with job approx 6 hrs day so not getting much exercise outside of this. Pt reports has access to a bowflex and palaties table and wants to have home program can do on own with last visit. She states will start OT soon . She reports her most comfortable and painfree position is supine with LEs elevated. She states doesn't seem to matter exercises vs none changes/reduction in her pain, always has it. PT-OP-K Range of Motion Start: 12/23/22 11:25 Freq: Status: Active Protocol: Document 12/23/22 11:26 ED (Rec: 12/23/22 11:38 ED [id number]) Lumbar Spine Range of Motion Lumbar Spine Active Flexion 100 Extension 100 ROM Limitations Pain Comments patient demonstrates full thoracolumbar ROM. Pain is noted during end range extension. Slight irritation and end range flexion PT-OP-L Special Tests Start: 12/23/22 11:25 Freq: Status: Active Protocol: Document 12/23/22 11:26 ED (Rec: 12/23/22 11:38 ED [id number]) Special Tests Lumbar Spine Special Tests Straight Leg Raise Test Results - Lior Test Results - PT-OP-Q Treatments Start: 12/23/22 11:25 Freq: Status: Active Protocol: Document 02/22/23 09:02 SP (Rec: 02/22/23 09:54 SP [id number]) Cardio Equipment Treadmill Duration (Minutes) 5 Speed 3- Incline 5 Other arms swing Therapeutic Exercises Supine Exercises LTR Supine Exercise Name figure 4 LTR Side bilateral Reps/Minutes 30 stretch Comments good feedback lateral hip and LB stretch irish plank Equipment Used blue/yellow foam roll under calves Reps/Minutes 65'' Comments cued PPT, decrease LB discomfort Prone Exercises child's pose Prone Exercise Name c, s/ SB Equipment Used floor and tball 65cm Reps/Minutes 60 Comments good back stretch Sitting Exercises pull down rear facing Resistance double blue Equipment Used seated 65 cm Tball Reps/Minutes 10, 20 reps Comments elbow straight vs bent pull down- felt more core bent lat pull down Sitting Exercise Name laternating with squat row Resistance 40#cable Reps/Minutes 2x20 ea Comments good handgrip (thumbs next to fingers support), breathwork Standing Exercises squat row Standing Exercise Name alternating with seated lat pull down Resistance 30# cable Reps/Minutes 2x10 Comments cued hip hinge with UE fwd Pull down Standing Exercise Name shld ext Side bilateral Resistance 20# angled above 2nd knotch, 10 9th knotch from top Reps/Minutes 10 each Comments cued chest lift, LT fac decrease LB tension recruitment Other Exercises 1/2 knee chops Other Exercise Name review reported past ex Resistance double blue band Equipment Used mat under knees Reps/Minutes x20 Comments good form and oblique effort- pnfree PT-OP-T Assessment and Plan Start: 12/23/22 11:25 Freq: Status: Active Protocol: Document 02/22/23 09:02 SP (Rec: 02/22/23 09:54 SP [id number]) Physical Therapy Assessment Goals Four Impairment Oswestry [facility] Goal (LTG) Pt will improve Oswestry Low back pain questionnaire by 10 points to a score <28. LTG Duration 6-8 weeks Three Impairment lifting Short Term Goal (STG) Pt will be able to lift 10# from the ground repeatedly c/o low back pain. STG Duration 3 weeks [facility] Goal (LTG) Pt will be able to lift, carry , and/or pull 10# repeatedly c /o low back pain. LTG Duration 6-8 weeks Two Impairment pain Short Term Goal (STG) Pt will report 10% improvment in low back pain frequency and /or intensity. STG Duration 3 weeks [facility] Goal (LTG) Pt will report 10% improvment in low back pain frequency and /or intensity. LTG Duration 4-8 weeks One Impairment HEP Short Term Goal (STG) Pt will report performing HEP > days/week. STG Duration 2 weeks [facility] Goal (LTG) Pt will report performing HEP > days/week. LTG Duration 6 weeks Assessment Summary Assessment Pt responds well to ther ex today. Occasional cues for alignment and posturing during ther ex. She reports finds the new squat rows very helpful full body strengthening. She requests further support/education on how to use a bowflex/palates table for carryover exercise for increased resistance progression support. She reports no increase in pain during tx but also doesn't bring down to 0. Physical Therapy Plan Frequency and Duration Frequency of Treatment 2x/Week Duration of treatment (weeks) 10 Plan of Care Start Date 12/23/22 Plan of Care End Date 03/23/23 Therapeutic Interventions Therapeutic Interventions Gait Training,Home Exercise Program,Joint Mobilizations, Manual Therapy,Neuromuscular Re-education,Patient/Caregiver Education,Self-Care/Home Management,Taping,Therapeutic Activities,Therapeutic Exercises Modalities Biofeedback,Cold Pack/Ice Massage,Electric Stimulation, Hot Packs,Iontophoresis, Ultrasound Next Visit Focus/Plan Next Note Type Treatment Note Next Visit Plan TM, figure 4 LTR, row, pull down front stand/seated/ rearfacing seated, sumo DL, split squat variations, core exercises, squat rows, chops. Continue to education on pain mgt strategies.
--- NOTE | 2023-02-24 10:46 | PT.OTN ---
Current Diagnoses Low back pain, unspecified (02/24/23) Physical Therapy Treatment Note PT-OP-A Visit Information Start: 12/23/22 11:25 Freq: Status: Active Protocol: Document 02/24/23 10:42 ED (Rec: 02/24/23 10:46 ED [id number]) Out-Patient Physical Therapy Visit Information Visit Information Visit Type Treatment Note Visit Start Time 10:00 Visit Stop Time 10:40 Total Visit Minutes 40 Visit Number 11 Number of APRON CLEANER Visits 1 PT-OP-B Current Condition Start: 12/23/22 11:25 Freq: Status: Active Protocol: Document 12/23/22 11:26 ED (Rec: 12/23/22 11:38 ED [id number]) Current Condition History of Current Condition Onset Date chronic low back pain Current Complaints low back pain History of Current Condition Pt states that she has chronic low back pain. She had corticosteroid injections a few years ago and states those seem to be wearing off now and wants to get another set of injections but she needs to have 6 or so physical therapy visits first. Pt states that she is physically active with her various jobs but does not do any formal, scheduled exercise routines; she used to do yoga regularly. Pt notes that prolonged sitting and bending forward are activities that aggravate her low back. PT-OP-C Subjective Start: 12/23/22 11:25 Freq: Status: Active Protocol: Document 02/24/23 10:42 ED (Rec: 02/24/23 10:46 ED [id number]) OP-PT Subjective Patient Comments Patient Comments Pt states her L thumb is feeling better. She notes that this is her last scheduled PT visit so she would like to go over her HEP. PT-OP-K Range of Motion Start: 12/23/22 11:25 Freq: Status: Active Protocol: Document 12/23/22 11:26 ED (Rec: 12/23/22 11:38 ED [id number]) Lumbar Spine Range of Motion Lumbar Spine Active Flexion 100 Extension 100 ROM Limitations Pain Comments patient demonstrates full thoracolumbar ROM. Pain is noted during end range extension. Slight irritation and end range flexion PT-OP-L Special Tests Start: 12/23/22 11:25 Freq: Status: Active Protocol: Document 12/23/22 11:26 ED (Rec: 12/23/22 11:38 ED [id number]) Special Tests Lumbar Spine Special Tests Straight Leg Raise Test Results - Lior Test Results - PT-OP-Q Treatments Start: 12/23/22 11:25 Freq: Status: Active Protocol: Document 02/24/23 10:42 ED (Rec: 02/24/23 10:46 ED [id number]) Cardio Equipment Treadmill Duration (Minutes) 8 Speed 2.5 Incline 1 Therapeutic Exercises Supine Exercises modified curl up Supine Exercise Name deadbug (reformer) Reps/Minutes x10 Sidelying Exercises side plank Reps/Minutes x30'' each Sitting Exercises lat pull down Sitting Exercise Name laternating with squat row Resistance 40#cable Reps/Minutes 2x20 ea Comments good handgrip (thumbs next to fingers support), breathwork Standing Exercises squat row Standing Exercise Name alternating with seated lat pull down Resistance 30# cable Reps/Minutes 2x10 Comments cued hip hinge with UE fwd Pull down Standing Exercise Name shld ext Side bilateral Resistance 20# angled above 2nd knotch, 10 9th knotch from top Reps/Minutes 10 each Comments cued chest lift, LT fac decrease LB tension recruitment Other Exercises 1/2 knee chops Other Exercise Name review reported past ex Resistance double blue band Equipment Used mat under knees Reps/Minutes x20 Comments good form and oblique effort- pnfree PT-OP-T Assessment and Plan Start: 12/23/22 11:25 Freq: Status: Active Protocol: Document 02/24/23 10:42 ED (Rec: 02/24/23 10:46 ED [id number]) Physical Therapy Assessment Goals Four Impairment Oswestry Longterm Goal (LTG) Pt will improve Oswestry Low back pain questionnaire by 10 points to a score <28. LTG Duration 6-8 weeks Three Impairment lifting Short Term Goal (STG) Pt will be able to lift 10# from the ground repeatedly c/o low back pain. STG Duration 3 weeks Longterm Goal (LTG) Pt will be able to lift, carry , and/or pull 10# repeatedly c /o low back pain. LTG Duration 6-8 weeks Two Impairment pain Short Term Goal (STG) Pt will report 10% improvment in low back pain frequency and /or intensity. STG Duration 3 weeks Parts Person Goal (LTG) Pt will report 10% improvment in low back pain frequency and /or intensity. LTG Duration 4-8 weeks One Impairment HEP Short Term Goal (STG) Pt will report performing HEP > days/week. STG Duration 2 weeks Longterm Goal (LTG) Pt will report performing HEP > days/week. LTG Duration 6 weeks Assessment Summary Assessment PT and patient went over HEP and added additional exercises that patient can use with her Pilates Reformer. Pt mimicked some of the exercises via resistance bands today to get familiar with the movements. Pt likely to be discharged soon. She mentioned at end of session that next week she is going to get injections for her back. Physical Therapy Plan Frequency and Duration Frequency of Treatment 2x/Week Duration of treatment (weeks) 10 Plan of Care Start Date 12/23/22 Plan of Care End Date 03/23/23 Therapeutic Interventions Therapeutic Interventions Gait Training,Home Exercise Program,Joint Mobilizations, Manual Therapy,Neuromuscular Re-education,Patient/Caregiver Education,Self-Care/Home Management,Taping,Therapeutic Activities,Therapeutic Exercises Modalities Biofeedback,Cold Pack/Ice Massage,Electric Stimulation, Hot Packs,Iontophoresis, Ultrasound Next Visit Focus/Plan Next Note Type Treatment Note Next Visit Plan TM, figure 4 LTR, row, pull down, sumo DL, split squat variations, core exercises
--- NOTE | 2023-03-11 07:27 | PT.OPDS ---
Current Diagnoses Low back pain, unspecified (02/24/23) Visit Care Team Role Provider Type Rolly Amaya DO Attending Provider Physician Family Provider Primary Care Provider Referring Provider Specialty: Family Practice Address: [address] [place] [address], [facility] Email: [email or web address] Visit Number Visit Number 11 Discharge Summary PT-OP-B Current Condition Start: 12/23/22 11:25 Freq: Status: Active Protocol: Document 12/23/22 11:26 ED (Rec: 12/23/22 11:38 ED [id number]) Current Condition History of Current Condition Onset Date chronic low back pain Current Complaints low back pain History of Current Condition Pt states that she has chronic low back pain. She had corticosteroid injections a few years ago and states those seem to be wearing off now and wants to get another set of injections but she needs to have 6 or so physical therapy visits first. Pt states that she is physically active with her various jobs but does not do any formal, scheduled exercise routines; she used to do yoga regularly. Pt notes that prolonged sitting and bending forward are activities that aggravate her low back. PT-OP-C Subjective Start: 12/23/22 11:25 Freq: Status: Active Protocol: Document 02/24/23 10:42 ED (Rec: 02/24/23 10:46 ED [id number]) OP-PT Subjective Patient Comments Patient Comments Pt states her L thumb is feeling better. She notes that this is her last scheduled PT visit so she would like to go over her HEP. PT-OP-K Range of Motion Start: 12/23/22 11:25 Freq: Status: Active Protocol: Document 12/23/22 11:26 ED (Rec: 12/23/22 11:38 ED [id number]) Lumbar Spine Range of Motion Lumbar Spine Active Flexion 100 Extension 100 ROM Limitations Pain Comments patient demonstrates full thoracolumbar ROM. Pain is noted during end range extension. Slight irritation and end range flexion PT-OP-L Special Tests Start: 12/23/22 11:25 Freq: Status: Active Protocol: Document 12/23/22 11:26 ED (Rec: 12/23/22 11:38 ED [id number]) Special Tests Lumbar Spine Special Tests Straight Leg Raise Test Results - Lior Test Results - PT-OP-T Assessment and Plan Start: 12/23/22 11:25 Freq: Status: Active Protocol: Document 03/11/23 07:26 ED (Rec: 03/11/23 07:27 ED [id number]) Physical Therapy Assessment Goals Four Impairment Oswestry Group Home Goal (LTG) Pt will improve Oswestry Low back pain questionnaire by 10 points to a score <28. LTG Duration 6-8 weeks Three Impairment lifting Short Term Goal (STG) Pt will be able to lift 10# from the ground repeatedly c/o low back pain. STG Duration 3 weeks Group Home Goal (LTG) Pt will be able to lift, carry , and/or pull 10# repeatedly c /o low back pain. LTG Duration 6-8 weeks Two Impairment pain Short Term Goal (STG) Pt will report 10% improvment in low back pain frequency and /or intensity. STG Duration 3 weeks Group Home Goal (LTG) Pt will report 10% improvment in low back pain frequency and /or intensity. LTG Duration 4-8 weeks One Impairment HEP Short Term Goal (STG) Pt will report performing HEP > days/week. STG Duration 2 weeks Psychiatric Therapist Goal (LTG) Pt will report performing HEP > days/week. LTG Duration 6 weeks Assessment Summary Assessment Pt will be discharged from PT at this time. Pt reported to PT for 13 visits with modest improvements in low back pain. Per patient report, she recognized the importance of exercise for health and well- being as well as pain modulation so she started exercising more frequently at home. Physical Therapy Plan Discharge Physical Therapy Discharge Reasons No Longer Attending PT
== END 2023-03-16 10:15 | disposition home or self-care (01) ==
LOC: PHYS 10:00
PROVIDERS: Family Provider Family Medicine; PCP Family Medicine; Referring Provider Family Medicine; Visit Provider Family Medicine
DX: M54.50 Low back pain, unspecified (principal)
CPT/HCPCS: 97110; 97140; 97161; 97530

== ENCOUNTER 2023-03-16 10:43 | Outpatient (CLI) | payer OTHER, SELFPAY ==
[2023-03-16] VITALS (10 sets, daily range): BP systolic 97–124; BP diastolic 59–93; PULSE 50–64; RESP 12–21; TEMP 36.5; O2SAT 96–100
--- NOTE | 2023-03-16 | DI.RAD.S_ITS ---
PROCEDURE: PAIN L/S FACET INJ/BLK 1ST BUDDY INDICATIONS: Arthropathy of lumbar facet joint COMPARISON: [facility], , PAIN L/S FACET INJ/BLK 1ST BUDDY, 05/07/2020, 15:42. FINDINGS: Fluoroscopic spot filming was performed to verify placement of spinal needles at the bilateral L4, L5 and S1 medial branch level(s), as labeled on the films. Appropriate location(s) of the needle tip(s) was confirmed by injection of iodinated contrast. IMPRESSION: Access needles placed for bilateral L4, L5 and S1 medial branch blocks. Dictated by: Nasra Simon MD, PhD on 03/16/2023 at 14:04 Approved by: Nasra Simon MD, PhD on 03/16/2023 at 14:04
[2023-03-16] MEDS: MIDAZOLAM 2 MG/2 ML VIAL IV ×2 (11:56→12:04)
[2023-03-16] MEDS: BUPIVACAINE 0.5% (PF) 10 ML VIAL 5 ML INJ (11:58)
[2023-03-16] MEDS: iopamidoL 15 ML VIAL 3 ML INJ (11:59)
[2023-03-16] MEDS: LIDOCAINE 1% 20 ML 5 ML INJ (11:59)
--- NOTE | 2023-03-16 12:18 | P.PCN_ITS ---
Date/Time/Diagnoses Date of procedure: 03/16/23 Time of procedure: 12:18 Pre-procedure diagnosis: 1. FACET ARTHROPATHY Post-procedure diagnosis: same Procedure Notes Procedure: 1. BILATERAL- L4, L5 and S1 DIAGNOSTIC MB BLOCKS with LA Anesthetic Indications: Malissa is referred by Dr. Amaya for treatment of Bilateral Axial LBP. Physician: Franky Grimes Total Fluoroscopy time (seconds): 14 Total sedation minutes: 18 Complications: none Procedure in detail & Post-procedure care: DESCRIPTION OF PROCEDURE Fluoroscopically guided, contrast-controlled bilateral L4, L5 and S1 medial branch blocks with 0.5cc of 0.5% Marcaine. Following review of allergy and review of potential side effects and complications, including, but not necessarily limited to, infection, allergic reaction, local tissue breakdown, nerve injury, paralysis, stroke and possible , the patient indicated that the patient understood and agreed to proceed. An informed consent document was signed by the patient, witnessed by a nurse, and placed in the patient's chart. After review of previous anaesthesic history and IV conscious sedation the patient was deemed safe to proceed with today's procedure with IV conscious sanjay tion as ASA class II designation. Safety time-out was performed to confirm patient ID, procedure to be performed and site of procedure. IV sedation was accomplished with a combination of 4mg of Versed was administered by the RN after DO order, titrated to patient comfort during the course of the procedure while the patient remained responsive to all verbal commands In the prone position, following sterile prep and drape of the lumbar region, the right L4, L5 and S1 anatomical location of the medial branch of the dorsal ramus was identified fluoroscopically. Subsequently an anesthetic skin wheal using 1% lidocaine solution was initiated at each of the anatomical spots. Subsequently then a 22-gauge 3.5-inch spinal needle was atraumatically introduced and advanced under fluoroscopic guidance at each of the corresponding sites at the right L4, L5 and S1 MB. After negative aspiration, 0.2cc of Isovue 200 was injected, confirming placement without vascular or intrathecal uptake. Subsequently then 0.5cc of 0.5% Marcaine solution was injected at each of the corresponding sites at the right L4, L5 and S1 medial branch locations. The identical procedure was replicated on the left. The patient tolerated the procedure well without signs or symptoms of complications prior to transfer to the recovery area continued monitoring without incident. Post-procedure, the patient was monitored initiating provocative activities to measure the amount of relief from block of the facetogenic pain. The patient reported a VAS of 7 prior to the procedure and a post-procedure VAS of 1. It has been a pleasure to assist in the diagnostic and therapeutic care of your patient. POST OP INSTRUCTIONS The patient was provided with a Pain Log to complete over the next several hours and subsequent days prior to the patient's follow up with the ordering physician. If the patient has shellfish bed worker relief to the solution applied, then they may be a candidate for medial branch rhizotomy. The patient is aware, was provided, once again, with a Pain Log and will follow up with the referring physician for review and clinical correlation
== END 2023-03-16 12:34 | disposition home or self-care (01) ==
LOC: RAD 10:45
PROVIDERS: Family Provider Family Medicine; PCP Family Medicine; Referring Provider Physical Medicine & Rehabilitation; Visit Provider Physical Medicine & Rehabilitation
DX: M47.816 Spondylosis without myelopathy or radiculopathy, lumbar region (principal); M47.817 Spondylosis without myelopathy or radiculopathy, lumbosacral region
CPT/HCPCS: 64493; 64494; 99152; J2250

== ENCOUNTER 2023-03-31 10:30 | Outpatient (RCR) | payer OTHER, SELFPAY ==
--- NOTE | 2023-03-10 15:54 | OT.OP.EVAL ---
Visit Care Team Role Provider Type Rolly Amaya DO Attending Provider Physician Family Provider Primary Care Provider Referring Provider Specialty: Family Practice Address: [address] [place] [address], [facility] Email: [email or web address] Occupational Therapy Initial Evaluation OT Outpatient Adult Evaluation Start: 03/10/23 15:00 Freq: Status: Active Protocol: Document 03/10/23 15:02 AMS (Rec: 03/10/23 15:53 AMS [id number]) General Information - Adult Visit Number 05/17 visits; 10/20 visits Plan of Care Dates 03/10/23 - 04/21/23 Insurance Information [place] [facility]; max 25 PT/OT/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 Instructed in light resistance exercises (resisted thumb extension and resisted palmar thumb abd); thumb extension utilizing single rubberband w/ slight flexion of IPJ and thumb palmar abduction utilizing single rubberband. Rec 3 sets of 15 repetitions. Recommended consideration of paraffin bath for home use, as well as thumb spica splint; rec consideration of Comfort Cool CMCJ over-the- countersplint versus custom splint. Given fit of MetaGrip would recommend considering the Comfort Cool or alternative [id number] CMCJ splint, and/or pursuing custom made orthotic/thumb spica splint w/ referral to certified hand therapist/UE docketing specialist. Discussed pursuing corticosteroid injection (as less conservative treatment modality option). Assisted Goals 1. Malissa will be modified independent with execution of home exercise program utilizing provided written and visual instructions from therapist. 2. Malissa will be able to verbalize 100% understanding of joint protection principles . 3. Malissa will be able to identify 2 to 3 conservative measures of pain/swelling management. 4. Malissa will be able to identify 2 to 3 different compensatory techniques and/or pieces of adaptive equipment that she can actively utilize in the work and/or home environments. Assessment/Plan Treatment Assessment Malissa is a 47 y.o. right hand dominant female referred to outpatient OT secondary to R hand pain. 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 Medical history also significant for low back pain (being [facility] and recently had outpatient PT to establish HEP), jaw pain, neck pain, ADD. Malissa reported that she is taking anti-inflammatory medication and she found kinesiotaping of the R thumb beneficial. She is also executing thumb opposition to base of each digit. 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 Malissa reported that symptoms presented approx 1 year ago; however, unable to specifically identify reason for onset. Mild swelling of volar surface of R palm/thumb pad area. (+) crepitus noted in MPJ of R thumb; inconsistent w/ slight flexion at MPJ combined w/ IPJ flex w / functional 'c' opposition. ( +) bilateral thumb adductor tightness palpated (L > R at site of lateral 2nd metacarpal ). 40 degrees R active palmar thumb abduction vs 45 degrees L active palmar thumb abduction. 45 degrees R active radial thumb abduction vs 50 degrees L active radial abduction. 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 women mean 62.2 +/- 15 .1) vs 58.0# of force L drilling rig operator ( compared to 45-49 y.o. women mean 56.0 +/- 12.7). Pinchometer Strength Testing Results: 14.5# of force R lateral wooten pinch (compared to 45-49 y.o. women mean 17.6 +/ - 3.2) vs 17.5# of force L lateral wooten pinch (compared to 45-49 y.o. women mean 16.6 +/ - 2.9); 8.5# of force R tip pinch (compared to 45-49 y.o. women mean 13.2 +/- 3.0) vs 13 .0# of force L tip pinch ( compared to 45-49 y.o. women mean 12.1 +/- 2.7); 9.0# of force R 3-jaw pinch (compared to 45-49 y.o. women mean 17.9 +/- 3.0) vs 18.0# of force L 3 -jaw pinch (compared to 45-49 y.o. women mean 17.5 +/- 2.8). QuickDASH UE Outcome Measure Score = 72.72; QuickDASH UE Work Module Score = 87.5; QuickDASH UE Sports/Performing Arts Module Score = 100.00. Malissa would likely benefit from outpatient OT given R hand pain/discomfort, mild swelling, to establish HEP, and provide education on joint protection principles and help identify compensatory/AE to support success w/ active participation in meaningful tasks in a variety of environments. Home Exercise Program 03/10/23 = Instructed in self- myofascial release of thumb adductor w/ hold of 20 to 30 sec (switching positioning of the thumbs). Single rubberband - resisted thumb ext w/ slight IPJ flex, resisted palmar thumb abd. 3 x 15 reps. Discussed functional 'c' and began joint protection education. Length of treatment (weeks) 6 Plan of Care Start Date 03/10/23 Plan of Care End Date 04/21/23 Treatment Frequency Once a Week Therapeutic Contents Active Range of Motion, Adaptive Equipment Education, Client Education,Functional Activities,Home Exercise Program,Joint Protection, Manual Therapy,Education Additional Types of Modalities Heat/Ice/Ultrasound/Paraffin wax
--- NOTE | 2023-03-17 13:34 | OT.OP.TRT ---
Visit Care Team Role Provider Type Rolly Amaya DO Attending Provider Physician Family Provider Primary Care Provider Referring Provider Specialty: Family Practice Address: [address] [place] [address], [facility] Email: [email or web address] 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 right hand dominant female referred to outpatient OT secondary to R hand pain. 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 Medical history also significant for low back pain (being [facility] by [facility] and recently had outpatient PT to establish HEP), jaw pain, neck pain, ADD. Malissa reported that she is taking anti-inflammatory medication and she found kinesiotaping of the R thumb beneficial. She is also executing thumb opposition to base of each digit. - Subjective Identification Type Name Identification Reconciled With Medical Record Observations (+) compliance w/ resisted thumb ext w/ rubberband between 4th and 5th digits w/ attention to IPJ flexion and self-myofascial thumb adductor release. Increasing awareness to grasping/pinching of items in the work place. Requested that therapist follow-up w/ PCP re: splint referral. Patient/Caregiver Compliance with Home Good Exercise Program - Objective Objective Measurements Please refer to below for progress towards meeting established OT goals: String Laster Goals 1. Malissa will be modified independent with execution of home exercise program utilizing provided written and visual instructions from therapist. 2. Malissa will be able to verbalize 100% understanding of joint protection principles . 3. Malissa will be able to identify 2 to 3 conservative measures of pain/swelling management. 4. Malissa will be able to identify 2 to 3 different compensatory techniques and/or pieces of adaptive equipment that she can actively utilize in the work and/or home environments. - Treatment 3 Descriptor Neuro retraining of grasp patterns. 2 Descriptor Manual provided by therapist to address thumb adductor tightness. 1 Descriptor Ultrasound. x 10 minutes to R dorsal R web space w/ attention to lateral border of 2nd metacarpal. 20% duty cycle. 2.0 w/cm2. Skin intact pre- and post- treatment. No complaints of pain/discomfort w/ treatment. Exercises 1 Descriptor Thumb ext strengthening. 2 rubberbands. 3 x 15 repetitions. - Assessment Assessment of Improvement (+) compliance and carry-over of self myofascial release and thumb extensor strengthening w/ utilization of rubberband; will need to review thumb abd strengthening at time of next treatment session to answer Malissa's questions. Faxed Malissa's PCP requesting referral to clinic w/ [facility] for R thumb spica splint given x- ray findings of mild CMCJ OA and c/o pain/discomfort of the R MCPJ. She may also likely benefit from L custom-made splint as well. Report of receiving corticosteroid injection to R thumb in May of 2023 by PCP. Reviewed functional 'c' and neuro re-training. Overall, good session. Will need to follow-up w/ PCP as needed. Rec also consideration of paraffin bath as modality choice. Malissa would likely benefit from outpatient OT given R hand pain/discomfort, mild swelling, to establish HEP, and provide education on joint protection principles and help identify compensatory/AE to support success w/ active participation in meaningful tasks in a variety of environments. Home Exercise Program 03/10/23 = Instructed in self myofascial thumb adductor release. Instructed in light resistance exercises (resisted thumb extension and resisted palmar thumb abd); thumb extension utilizing single rubberband w/ slight flexion of IPJ and thumb palmar abduction utilizing single rubberband. Rec 3 sets of 15 repetitions. Recommended consideration of paraffin bath for home use, as well as thumb spica splint; rec consideration of Comfort Cool CMCJ [id number] versus custom splint. Given fit of MetaGrip would recommend considering the Comfort Cool or alternative [id number] CMCJ splint, and/or pursuing custom made orthotic/thumb spica splint w/ referral to certified hand therapist/UE family law specialist. Discussed pursuing corticosteroid injection (as less conservative treatment modality option). - Plan Therapy Recommendations Continue with Current Program, Advance per Rehabilitation Protocol
--- NOTE | 2023-03-24 13:08 | OT.OP.TRT ---
Visit Care Team Role Provider Type Rolly Amaya DO Attending Provider Physician Family Provider Primary Care Provider Referring Provider Specialty: Family Practice Address: [address] [place] [address], [facility] Email: [email or web address] Occupational Therapy Treatment Note OT Outpatient Treatment Note - Adult Start: 03/10/23 15:00 Freq: Status: Active Protocol: Document 03/24/23 13:04 [facility] (Rec: 03/24/23 13:08 [facility] [id number]) OT Outpatient Adult Treatment Note Session Time Visit Start Time 10:45 Visit Stop Time 11:20 Total Visit Minutes 35 Visit Information Visit Number 06/17 visits; 11/19 visits Plan of Care Dates 03/10/23 - 04/21/23 Insurance Information [facility]; max 25 PT/OT/CORNETIST; 09/19 used Setting Treatment Setting Outpatient Care Visit Type Note Type Treatment Note General Information General Information Malissa is a 47 y.o. right hand dominant female referred to outpatient OT secondary to R hand pain. 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 Medical history also significant for low back pain (being treated by Dr. Chen [facility] and recently had outpatient PT to establish HEP), jaw pain, neck pain, ADD. Malissa reported that she is taking anti-inflammatory medication and she found kinesiotaping of the R thumb beneficial. She is also executing thumb opposition to base of each digit. - Subjective Identification Type Name Identification Reconciled With Medical Record Observations (+) compliance w/ resisted thumb ext w/ rubberband between 4th and 5th digits w/ attention to IPJ flexion and self-myofascial thumb add release. (+) practicing of awareness of grasping of items in various environments, in the home and at work. Patient/Caregiver Compliance with Home Good Exercise Program - Objective Objective Measurements Please refer to below for progress towards meeting established OT goals: Custodial Goals 1. Malissa will be modified independent with execution of home exercise program utilizing provided written and visual instructions from therapist. 2. Malissa will be able to verbalize 100% understanding of joint protection principles . 3. Malissa will be able to identify 2 to 3 conservative measures of pain/swelling management. 4. Malissa will be able to identify 2 to 3 different compensatory techniques and/or pieces of adaptive equipment that she can actively utilize in the work and/or home environments. - Treatment 3 Descriptor Neuro retraining of grasp patterns. 2 Descriptor Manual provided by therapist to address thumb adductor tightness. 1 Descriptor Ultrasound. x 10 minutes to R dorsal R web space w/ attention to lateral border of 2nd metacarpal. 20% duty cycle. 2.0 w/cm2. Skin intact pre- and post- treatment. No complaints of pain/discomfort w/ treatment. Exercises 1 Descriptor Thumb ext strengthening. 2 rubberbands. 3 x 15 repetitions. - Assessment Assessment of Improvement Malissa to follow-up w/ PCP re : thumb spica splint. (+) compliance and carry-over of self myofascial release, thumb extensor strengthening w/ utilization of rubberband, and awareness to positioning of thumb w/ grasping of objects in the home and work environments. Report of plan on receiving corticosteroid injection to R thumb in May of 2023 by PCP. Reviewed functional 'c' and neuro re-training. Overall, good session. Will need to follow-up w/ PCP as needed. Rec also consideration of paraffin bath as modality choice. Malissa would likely benefit from outpatient OT given R hand pain/discomfort, mild swelling, to establish HEP, and provide education on joint protection principles and help identify compensatory/AE to support success w/ active participation in meaningful tasks in a variety of environments. Home Exercise Program 03/10/23 = Instructed in self myofascial thumb adductor release. Instructed in light resistance exercises (resisted thumb extension and resisted palmar thumb abd); thumb extension utilizing single rubberband w/ slight flexion of IPJ and thumb palmar abduction utilizing single rubberband. Rec 3 sets of 15 repetitions. Recommended consideration of paraffin bath for home use, as well as thumb spica splint; rec consideration of Comfort Cool CMCJ [id number] versus custom splint. Given fit of MetaGrip would recommend considering the Comfort Cool or alternative lidk-msi-ayunptt CMCJ splint, and/or pursuing custom made orthotic/thumb spica splint w/ referral to certified hand therapist/UE campaign marketing specialist. Discussed pursuing corticosteroid injection (as less conservative treatment modality option). - Plan Therapy Recommendations Continue with Current Program, Advance per Rehabilitation Protocol
--- NOTE | 2023-03-31 11:57 | OT.OP.TRT ---
Visit Care Team Role Provider Type Rolly Amaya DO Attending Provider Physician Family Provider Primary Care Provider Referring Provider Specialty: Family Practice Address: [address] [place] [address], [facility] Email: [email or web address] Occupational Therapy Treatment Note OT Outpatient Treatment Note - Adult Start: 03/10/23 15:00 Freq: Status: Active Protocol: Document 03/31/23 11:53 [facility] (Rec: 03/31/23 11:57 [facility] [id number]) OT Outpatient Adult Treatment Note Session Time Visit Start Time 10:45 Visit Stop Time 11:30 Total Visit Minutes 45 Visit Information Visit Number 07/15 visits; 12/20 visits Plan of Care Dates 03/10/23 - 04/21/23 Insurance Information [facility]; max 25 PT/OT/EXECUTIVE COMPENSATION ANALYST; 09/19 used Setting Treatment Setting Outpatient Care Visit Type Note Type Treatment Note General Information General Information Malissa is a 47 y.o. right hand dominant female referred to outpatient OT secondary to R hand pain. 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 Medical history also significant for low back pain (being treated by Dr. Chen at [facility] and recently had outpatient PT to establish HEP), jaw pain, neck pain, ADD. Malissa reported that she is taking anti-inflammatory medication and she found kinesiotaping of the R thumb beneficial. She is also executing thumb opposition to base of each digit. - Subjective Identification Type Name Identification Reconciled With Medical Record Observations Receipt of pain injection on 03/29/23; treatment was provided by Dr. Chen at [facility]. Patient/Caregiver Compliance with Home Good Exercise Program - Objective Objective Measurements Please refer to below for progress towards meeting established OT goals: Long-Term Goals 1. Malissa will be modified independent with execution of home exercise program utilizing provided written and visual instructions from therapist. 2. Malissa will be able to verbalize 100% understanding of joint protection principles . 3. Malissa will be able to identify 2 to 3 conservative measures of pain/swelling management. 4. Malissa will be able to identify 2 to 3 different compensatory techniques and/or pieces of adaptive equipment that she can actively utilize in the work and/or home environments. - Treatment 3 Descriptor Neuro retraining of grasp patterns. 2 Descriptor Manual provided by therapist to address thumb adductor tightness. 1 Descriptor Ultrasound. x 10 minutes to R dorsal R web space w/ attention to lateral border of 2nd metacarpal. 20% duty cycle. 2.0 w/cm2. Skin intact pre- and post- treatment. No complaints of pain/discomfort w/ treatment. - Assessment Assessment of Improvement (+) receipt of injection to R CMCJ performed on 03/29/[address] Chen. (+) compliance and carry-over of self myofascial release, thumb extensor strengthening w/ utilization of rubberband, and awareness to positioning of thumb w/ grasping of objects in the home and work environments. Will need to follow-up w/ PCP as needed. Rec continued consideration of thumb spica splint(s), custom versus hfxq-zfu-[id number] based on work/home environmental limitations. Rec also consideration of paraffin bath as modality choice. Malissa would likely benefit from outpatient OT given R hand pain/discomfort, mild swelling, to establish HEP, and provide education on joint protection principles and help identify compensatory/AE to support success w/ active participation in meaningful tasks in a variety of environments. Home Exercise Program 03/10/23 = Instructed in self myofascial thumb adductor release. Instructed in light resistance exercises (resisted thumb extension and resisted palmar thumb abd); thumb extension utilizing single rubberband w/ slight flexion of IPJ and thumb palmar abduction utilizing single rubberband. Rec 3 sets of 15 repetitions. Recommended consideration of paraffin bath for home use, as well as thumb spica splint; rec consideration of Comfort Cool CMCJ [id number]-yzhlhxhqrqiar versus custom splint. Given fit of MetaGrip would recommend considering the Comfort Cool or alternative piyu-ycl-omdhqna CMCJ splint, and/or pursuing custom made orthotic/thumb spica splint w/ referral to certified hand therapist/UE content development specialist. Discussed pursuing corticosteroid injection (as less conservative treatment modality option). - Plan Therapy Recommendations Continue with Current Program, Advance per Rehabilitation Protocol
--- NOTE | 2023-05-04 08:41 | OT.OP.DC ---
Visit Care Team Role Provider Type Rolly Amaya DO Attending Provider Physician Family Provider Primary Care Provider Referring Provider Address: [address] [place] [address], [id number] Email: [email or web address] Outpatient OT Outpatient Adult Evaluation Start: 03/10/23 15:00 Freq: Status: Active Protocol: Document 03/10/23 15:02 AMS (Rec: 03/10/23 15:53 AMS [id number]) General Information - Adult Visit Information Visit Number 05/17 visits; 10/20 visits Plan of Care Dates 03/10/23 - 04/21/23 Insurance Information [facility]; max 25 PT/OT/ONLINE MERCHANDISING MANAGER; 09/19 used Session Time Visit Start Time 11:00 Visit Stop Time 11:45 Total Visit Minutes 45 Setting Treatment Setting Outpatient Care Visit Type Note Type Initial Evaluation Identification Identification Confirmed Yes Identification Confirmed By Self Goals Treatment Treatment Instructed in self myofascial thumb adductor release. Instructed in light resistance exercises (resisted thumb extension and resisted palmar thumb abd); thumb extension utilizing single rubberband w/ slight flexion of IPJ and thumb palmar abduction utilizing single rubberband. Rec 3 sets of 15 repetitions. Recommended consideration of paraffin bath for home use, as well as thumb spica splint; rec consideration of Comfort Cool CMCJ over-the- countersplint versus custom splint. Given fit of MetaGrip would recommend considering the Comfort Cool or alternative [id number] CMCJ splint, and/or pursuing custom made orthotic/thumb spica splint w/ referral to certified hand therapist/UE document preparation specialist. Discussed pursuing corticosteroid injection (as less conservative treatment modality option). [facility] Goals Spine Nurse Goals 1. Malissa will be modified independent with execution of home exercise program utilizing provided written and visual instructions from therapist. 2. Malissa will be able to verbalize 100% understanding of joint protection principles . 3. Malissa will be able to identify 2 to 3 conservative measures of pain/swelling management. 4. Malissa will be able to identify 2 to 3 different compensatory techniques and/or pieces of adaptive equipment that she can actively utilize in the work and/or home environments. Assessment/Plan Assessment Treatment Assessment Malissa is a 47 y.o. right hand dominant female referred to outpatient OT secondary to R hand pain. 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 Medical history also significant for low back pain ([facility] and recently had outpatient PT to establish HEP), jaw pain, neck pain, ADD. Malissa reported that she is taking anti-inflammatory medication and she found kinesiotaping of the R thumb beneficial. She is also executing thumb opposition to base of each digit. 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 Malissa reported that symptoms presented approx 1 year ago; however, unable to specifically identify reason for onset. Mild swelling of volar surface of R palm/thumb pad area. (+) crepitus noted in MPJ of R thumb; inconsistent w/ slight flexion at MPJ combined w/ IPJ flex w / functional 'c' opposition. ( +) bilateral thumb adductor tightness palpated (L > R at site of lateral 2nd metacarpal ). 40 degrees R active palmar thumb abduction vs 45 degrees L active palmar thumb abduction. 45 degrees R active radial thumb abduction vs 50 degrees L active radial abduction. Dynamometer II Strength Testing w/ elbows in 90 degrees flexion: 60.0# of force R head of ethics and compliance (compared to 45- 49 y.o. women mean 62.2 +/- 15 .1) vs 58.0# of force L head of ethics and compliance ( compared to 45-49 y.o. women mean 56.0 +/- 12.7). Pinchometer Strength Testing Results: 14.5# of force R lateral wooten pinch (compared to 45-49 y.o. women mean 17.6 +/ - 3.2) vs 17.5# of force L lateral wooten pinch (compared to 45-49 y.o. women mean 16.6 +/ - 2.9); 8.5# of force R tip pinch (compared to 45-49 y.o. women mean 13.2 +/- 3.0) vs 13 .0# of force L tip pinch ( compared to 45-49 y.o. women mean 12.1 +/- 2.7); 9.0# of force R 3-jaw pinch (compared to 45-49 y.o. women mean 17.9 +/- 3.0) vs 18.0# of force L 3 -jaw pinch (compared to 45-49 y.o. women mean 17.5 +/- 2.8). QuickDASH UE Outcome Measure Score = 72.72; QuickDASH UE Work Module Score = 87.5; QuickDASH UE Sports/Performing Arts Module Score = 100.00. Malissa would likely benefit from outpatient OT given R hand pain/discomfort, mild swelling, to establish HEP, and provide education on joint protection principles and help identify compensatory/AE to support success w/ active participation in meaningful tasks in a variety of environments. Home Exercise Program 03/10/23 = Instructed in self- myofascial release of thumb adductor w/ hold of 20 to 30 sec (switching positioning of the thumbs). Single rubberband - resisted thumb ext w/ slight IPJ flex, resisted palmar thumb abd. 3 x 15 reps. Discussed functional 'c' and began joint protection education. Plan Length of treatment (weeks) 6 Plan of Care Start Date 03/10/23 Plan of Care End Date 04/21/23 Treatment Frequency Once a Week Therapeutic Contents Active Range of Motion, Adaptive Equipment Education, Client Education,Functional Activities,Home Exercise Program,Joint Protection, Manual Therapy,Education Additional Types of Modalities Heat/Ice/Ultrasound/Paraffin wax Functional Wrist/Hand Scan Hand Side Sensory Assessment Sensory Profile2 OT Outpatient Treatment Note - Adult Start: 03/10/23 15:00 Freq: Status: Active Protocol: Document 05/04/23 08:39 AMS (Rec: 05/04/23 08:41 [facility] [id number]) OT Outpatient Adult Treatment Note Visit Information Visit Number 07/15 visits; 12/20 visits Plan of Care Dates 03/10/23 - 04/21/23 Insurance Information [facility]; max 25 PT/OT/ONLINE MERCHANDISING MANAGER; 09/19 used Setting Treatment Setting Outpatient Care Visit Type Note Type Discharge Summary General Information General Information Malissa is a 47 y.o. right hand dominant female referred to outpatient OT secondary to R hand pain. 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 Medical history also significant for low back pain (being [facility] by [facility] and recently had outpatient PT to establish HEP), jaw pain, neck pain, ADD. Malissa reported that she is taking anti-inflammatory medication and she found kinesiotaping of the R thumb beneficial. She is also executing thumb opposition to base of each digit. - Subjective Identification Type Name Identification Reconciled With Medical Record Observations Malissa has not been seen in the outpatient setting by OT since 03/31/23 and outpatient OT POC on 04/21/23; thus, recommend d/c from outpatient OT at this time and re-evaluate as deemed appropriate by PCP w/ receipt of new referral. - Objective Objective Measurements Please refer to below for progress towards meeting established OT goals: [facility] Goals ALL GOALS D/C 05/04/23 1. Malissa will be modified independent with execution of home exercise program utilizing provided written and visual instructions from therapist. 2. Malissa will be able to verbalize 100% understanding of joint protection principles . 3. Malissa will be able to identify 2 to 3 conservative measures of pain/swelling management. 4. Malissa will be able to identify 2 to 3 different compensatory techniques and/or pieces of adaptive equipment that she can actively utilize in the work and/or home environments. - - Assessment Assessment of Improvement Malissa has not been seen in the outpatient setting by OT since 03/31/23 and outpatient OT POC on 04/21/23; thus, recommend d/c from outpatient OT at this time and re-evaluate as deemed appropriate by PCP w/ receipt of new referral. - Plan Therapy Recommendations Discharge from Occupational Therapy
== END 2023-05-07 08:32 | disposition home or self-care (01) ==
LOC: OT 10:30
PROVIDERS: Family Provider Family Medicine; PCP Family Medicine; Referring Provider Family Medicine; Visit Provider Family Medicine
DX: M79.641 Pain in right hand (principal); R53.1 Weakness
CPT/HCPCS: 97035; 97110; 97140; 97165; 97530

== ENCOUNTER 2023-04-06 14:33 | Outpatient (CLI) | payer OTHER, SELFPAY ==
[2023-04-06] VITALS (9 sets, daily range): BP systolic 97–114; BP diastolic 51–80; PULSE 55–71; RESP 13–21; TEMP 36.3; O2SAT 100
--- NOTE | 2023-04-06 15:00 | DI.RAD.S_ITS ---
PROCEDURE: PAIN L/S FACET INJ/BLK 1ST BUDDY INDICATIONS: SPONDYLOSIS COMPARISON: [facility], , PAIN L/S FACET INJ/BLK 1ST BUDDY, 03/16/2023, 12:58. FINDINGS: Fluoroscopic spot filming was performed to verify placement of spinal needles at the bilateral L4, L5-S1 level(s), as labeled on the films. Appropriate location(s) of the needle tip(s) was confirmed by injection of iodinated contrast. IMPRESSION: Intra procedural examination demonstrating appropriate positions of the needles. Dictated by: Noel Castro M.D. on 04/06/2023 at 17:18 Approved by: Noel Castro M.D. on 04/06/2023 at 17:18
[2023-04-06] MEDS: MIDAZOLAM 2 MG/2 ML VIAL IV ×2 (15:35→15:41)
[2023-04-06] MEDS: LIDOCAINE 1% 20 ML 5 ML INJ (15:43)
[2023-04-06] MEDS: iopamidoL 15 ML VIAL 3 ML INJ (15:43)
[2023-04-06] MEDS: LIDOCAINE 2% INJ SDV 5ML 10 ML INJ (15:44)
--- NOTE | 2023-04-06 15:58 | PM.PROC.IR.1 ---
Date/Time/Diagnoses Date of procedure: 04/06/23 Time of procedure: 15:58 Pre-procedure diagnosis: 1. FACET ARTHROPATHY Post-procedure diagnosis: same Procedure Notes Procedure: 1. BILATERAL- L4, L5 and S1 DIAGNOSTIC MB BLOCKS with SA Anesthetic Indications: Malissa is referred by Dr. Amaya for treatment of Bilateral Axial LBP. Physician: Franky Grimes Total Fluoroscopy time (seconds): 18 Total sedation minutes: 20 Complications: none Procedure in detail & Post-procedure care: DESCRIPTION OF PROCEDURE Fluoroscopically guided, contrast-controlled bilateral L4, L5 and S1 medial branch blocks with 0.5cc of 2% Lidocaine. Following review of allergy and review of potential side effects and complications, including, but not necessarily limited to, infection, allergic reaction, local tissue breakdown, nerve injury, paralysis, stroke and possible , the patient indicated that the patient understood and agreed to proceed. An informed consent document was signed by the patient, witnessed by a nurse, and placed in the patient's chart. After review of previous anaesthesic history and IV conscious sedation the patient was deemed safe to proceed with today's procedure with IV conscious sedation as ASA class II designation. Safety time-out was performed to confirm patient ID, procedure to be performed and site of procedure. IV sedation was accomplished with a combination of 4mg of Versed was administered by the RN after DO order, titrated to patient comfort during the course of the procedure while the patient remained responsive to all verbal commands In the prone position, following sterile prep and drape of the lumbar region, the right L4, L5 and S1 anatomical location of the medial branch of the dorsal ramus was identified fluoroscopically. Subsequently an anesthetic skin wheal using 1% lidocaine solution was initiated at each of the anatomical spots. Subsequently then a 22-gauge 3.5-inch spinal needle was atraumatically introduced and advanced under fluoroscopic guidance at each of the corresponding sites at the right L4, L5 and S1 MB. After negative aspiration, 0.2cc of Isovue 200 was injected, confirming placement without vascular or intrathecal uptake. Subsequently then 0.5cc of 2% Lidocaine solution was injected at each of the corresponding sites at the right L4, L5 and S1 medial branch locations. The identical procedure was replicated on the left. The patient tolerated the procedure well without signs or symptoms of complications prior to transfer to the recovery area continued monitoring without incident. Post-procedure, the patient was monitored initiating provocative activities to measure the amount of relief from block of the facetogenic pain. The patient reported a VAS of 7 prior to the procedure and a post-procedure VAS of 1. It has been a pleasure to assist in the diagnostic and therapeutic care of your patient. POST OP INSTRUCTIONS The patient was provided with a Pain Log to complete over the next several hours and subsequent days prior to the patient's follow up with the ordering physician. If the patient has financial aid administrator relief to the solution applied, then they may be a candidate for medial branch rhizotomy. The patient is aware, was provided, once again, with a Pain Log and will follow up with the referring physician for review and clinical correlation
== END 2023-04-06 16:20 | disposition home or self-care (01) ==
PROVIDERS: Family Provider Family Medicine; PCP Family Medicine; Referring Provider Physical Medicine & Rehabilitation; Visit Provider Physical Medicine & Rehabilitation
DX: M47.816 Spondylosis without myelopathy or radiculopathy, lumbar region (principal); M47.817 Spondylosis without myelopathy or radiculopathy, lumbosacral region
CPT/HCPCS: 64493; 64494; 99152; J2250

== ENCOUNTER 2023-04-22 10:44 | Outpatient (CLI) | payer OTHER, SELFPAY ==
[2023-04-22] VITALS (16 sets, daily range): BP systolic 104–124; BP diastolic 63–78; PULSE 47–74; RESP 12–18; TEMP 36.4; O2SAT 20–100
--- NOTE | 2023-04-22 11:15 | DI.RAD.S_ITS ---
PROCEDURE: PAIN L/S MED/LAT N RFA INDICATIONS: SPONDYLOSIS COMPARISON: None. FINDINGS: Fluoroscopic spot filming was performed to verify placement of spinal needles at the bilateral L4, L5 and S1 level(s), as labeled on the films. Appropriate location(s) of the needle tip(s) was confirmed by injection of iodinated contrast. IMPRESSION: Intra procedural examination demonstrating appropriate positions of the needles. Dictated by: Noel Castro M.D. on 04/22/2023 at 15:02 Approved by: Noel Castro M.D. on 04/22/2023 at 15:03
[2023-04-22] MEDS: fentaNYL 100 MCG/2 ML INJ 50 MCG IV (11:43)
[2023-04-22] MEDS: MIDAZOLAM 2 MG/2 ML VIAL 1 MG IV ×4 (11:43→12:22)
[2023-04-22] MEDS: LIDOCAINE 1% 20 ML 5 ML INJ (11:46)
[2023-04-22] MEDS: BUPIVACAINE 0.5% (PF) 10 ML VIAL 5 ML INJ (11:47)
--- NOTE | 2023-04-22 12:36 | P.PCN_ITS ---
Date/Time/Diagnoses Date of procedure: 04/22/23 Time of procedure: 12:36 Pre-procedure diagnosis: 1. RECALCITRANT FACET ARTHROPATHY Post-procedure diagnosis: same Procedure Notes Procedure: 1. BILATERAL L4 AND L5 MEDIAL BRANCH RADIOFREQUENCY NEUROTOMY AND S1 DORSAL RAMUS BRANCH RADIOFREQUENCY NEUROTOMY Indications: Malissa is referred by Dr. Amaya for treatment of facet arthropathy. Physician: Franky Grimes Total Fluoroscopy time (seconds): 25 Total sedation minutes: 45 Complications: none Procedure in detail & Post-procedure care: DESCRIPTION OF PROCEDURE Bilateral L4 and L5 medial branch radiofrequency neurotomy and bilateral S1 dorsal ramus radiofrequency neurotomy under fluoroscopy with conscious sedation. The patient is well known to this clinic having undergone previous facet injections with good but temporary relief. The patient has experienced appropriate, concordant relief with previous facet and median branch blocks but the patient's pain has been recalcitrant to further conservative measures. Therefore, based upon the patient's relief and persistent symptoms, the patient is considered an appropriate candidate for facet rhizotomy. All of the patient's questions regarding the risks versus benefits of the procedure, including, but not limited to, bleeding, infection, temporary as well as lasting nerve injury, paralysis, stroke, and , as well treatment alternatives were answered to satisfaction. After obtaining informed consent, denial of pertinent drug allergies, as well as being made aware of the potential risks of bleeding, infection, spinal cord trauma, paralysis, temporary and permanent nerve damage, seizure, stroke, and possible , the patient was brought to the fluoroscopy suite and positioned prone on the fluoroscopy table. The lumbar region was prepped in usual sterile fashion and covered with a fenestrated drape in the usual sterile fashion. Appropriate monitors applied including pulse oximeter, pulse, and blood pressure for regular monitoring throughout the procedure. After review of previous anaesthesic history and IV conscious sedation the patient was deemed safe to proceed with today's procedure with IV conscious sedation as ASA class II designation. Safety time-out was performed to confirm patient ID, procedure to be performed and site of procedure. IV sedation was accomplished with a combination of 5mg of Versed and 50mcg of Fentanyl administered by the RN after DO order, titrated to patient comfort during the course of the procedure while the patient remained responsive to all verbal commands. After local infiltration using 1% lidocaine, under fluoroscopic guidance, a 10- cm RF insulated needle with a 10-mm active tip was positioned parallel to the junction of the right sacral ala and the superior articulating process where the S1 dorsal ramus resides. Needle placement was confirmed with motor stimulation of .5v on the right which produced local stimulation without radicular component. The stimulation was then increased to 2v with, once again, only local multifidus stimulation without radicular component. The needle was then removed and the identical procedure was performed along the length of the right L5 medial branch with motor stimulation at .7v on the right. The identical procedure was once again performed along the length of the right L4 medial branch with motor stimulation of .5v on the right. The medial branches were then anesthetised with 0.5% Marcaine. This was then followed by two discreet lesions performed at 80 degrees Celsius for 90 seconds each. The identical procedure was repeated on the left. The patient tolerated the procedure well without signs or symptoms of complications prior to transfer to the recovery area continued monitoring without incident. The patient was then transferred to the recovery area where they were observed for an appropriate period of time after the injection. The patient reported a VAS score of 9 prior to the procedure and a post-procedure VAS of 0. POST OP INSTRUCTIONS The patient was provided a Pain Log to continue to record the patient's response to the target-specific procedure prior to the patient's follow-up visit with the referring physician. Additionally, specific post-injection care instructions and a contact number to our office were provided if concerns arise regarding possible complications associated with the procedure are suspected.
== END 2023-04-22 12:52 | disposition home or self-care (01) ==
PROVIDERS: Family Provider Family Medicine; PCP Family Medicine; Referring Provider Physical Medicine & Rehabilitation; Visit Provider Physical Medicine & Rehabilitation
DX: M47.816 Spondylosis without myelopathy or radiculopathy, lumbar region (principal); M47.817 Spondylosis without myelopathy or radiculopathy, lumbosacral region
CPT/HCPCS: 64635; 64636; 99152; 99153; J2250; J3010

== ENCOUNTER → 2024-08-30 08:39 | Outpatient (CLI) | payer OTHER, SELFPAY | LOC: LAB 08:39 | PROVIDERS: Family Provider Family Medicine; PCP Family Medicine; Visit Provider Nurse Practitioner Family | DX: M54.50 Low back pain, unspecified (principal) | CPT/HCPCS: 87086 ==

== ENCOUNTER → 2024-08-30 09:20 | Outpatient (CLI) | payer OTHER, SELFPAY ==
--- NOTE | 2024-08-30 09:22 | DI.RAD.S_ITS ---
PROCEDURE: XR KUB INDICATIONS: Hematuria TECHNIQUE: One view of the abdomen acquired. COMPARISON: None. FINDINGS: Surgical changes and devices: None. Bowel: Bowel gas pattern is normal. Soft tissues: No radiopaque calculi. Visualized solid organ contours appear normal in size. Pelvic phleboliths. Bones: No acute osseous abnormality. Lumbosacral transitional anatomy. IMPRESSION: No radiopaque nephrolithiasis. Dictated by: William Queen M.D. on 08/30/2024 at 16:46 Approved by: William Queen M.D. on 08/30/2024 at 16:48
== END ==
LOC: RAD 09:21
PROVIDERS: Family Provider Family Medicine; PCP Family Medicine; Referring Provider Nurse Practitioner Family; Visit Provider Nurse Practitioner Family
DX: M54.50 Low back pain, unspecified (principal); R31.9 Hematuria, unspecified
CPT/HCPCS: 74018; 87086